=== PATIENT | female | born 1950 | race Caucasian/White ===

== ENCOUNTER → 2021-04-20 03:34 | Outpatient (CLI) | payer MEDICARE, SELFPAY ==
[2021-04-22 12:58] LABS: SARS-CoV-2 RNA PCR Negative
== END ==
PROVIDERS: PCP Physician Assistant; Visit Provider Internal Medicine Gastroenterology
DX: Z01.812 Encounter for preprocedural laboratory examination (principal); Z20.822 Contact with and (suspected) exposure to COVID-19
CPT/HCPCS: C9803; U0003; U0005

== ENCOUNTER 2021-04-23 00:40 | Day surgery (SDC) | payer MEDICARE, SELFPAY ==
[2021-04-14 13:24] VITALS: BMI 26.2
[2021-04-23 09:20] VITALS: BP 141/58; PULSE 56; RESP 20; TEMP 36.3; O2SAT 99
[2021-04-23] MEDS: LACTATED RINGERS 1,000 ML 150 ML IV CONT (09:31)
--- NOTE | 2021-04-23 10:07 | WPDANESEPPF ---
Anes - Initial Pre Proc Eval Procedure: Operation Date: 04/23/21 10:00 Proposed Procedures p Screening Colonoscopy - Herber Smith MD Date/Time: 04/23/21 10:07 Surgeon: Herber Smith MD Pre Op Diagnosis: hx of colon polyps Patient Data Age: 71 Gender: F Height: 5 ft 2 in Weight: 64.8 kg Last Vital Signs Temp 97.3 F L 04/23/21 09:20 Pulse 56 L 04/23/21 09:20 Resp 20 04/23/21 09:20 BP 141/58 H 04/23/21 09:20 Pulse Ox 99 04/23/21 09:20 Allergies Allergy/AdvReac Type Severity Reaction Status Date / Time ciprofloxacin [From Cipro] Allergy Nausea and Verified 04/23/21 09:18 Vomiting fluconazole [From Diflucan] Allergy Hives Verified 04/23/21 09:18 nitrofurantoin Allergy Hives Verified 04/23/21 09:18 [From Macrodantin] Sulfa (Sulfonamide Allergy Hives Verified 04/23/21 09:18 Antibiotics) Home Medications Medication Instructions Recorded Confirmed Type amlodipine 5 mg PO DAILY 12/11/19 04/14/21 History benazepril 20 mg PO DAILY 12/11/19 04/14/21 History calcium carbonate [Calcium 500] 500 mg PO DAILY 12/11/19 04/14/21 History cholecalciferol (vitamin D3) 25 mcg PO DAILY 12/11/19 04/14/21 History [Vitamin D3] famotidine [Pepcid] 20 mg PO BID 12/11/19 04/14/21 History fish,bora,flax oils-om3,6,9no1 800 cap PO DAILY 12/11/19 04/14/21 History [Nunda 3-6-9] magnesium 250 mg PO DAILY 12/11/19 04/14/21 History metoprolol succinate 50 mg PO DAILY 12/11/19 04/14/21 History metronidazole 1 applic TOPICAL DAILY 12/11/19 04/14/21 History multivitamin 1 tablet PO DAILY 12/11/19 04/14/21 History rosuvastatin [Crestor] 20 mg PO DAILY 12/11/19 04/14/21 History zinc 50 mg PO DAILY 12/11/19 04/14/21 History Patient hx anesthesia problems: none Family hx anesthesia problems: none [facility] Past Medical History Medical History (Updated 12/31/19 @ 11:59 by Jesus House MD) Arthritis Chronic diarrhea Elevated cholesterol GERD (gastroesophageal reflux disease) HTN (hypertension) 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 Family History Family History (Updated 12/11/19 @ 11:03 by Jesus House MD) Sibling FH: kidney cancer Social History Social History (Updated 12/11/19 @ 11:04 by Jesus House MD) Smoking packs per day: 1 Smoking cigarettes per day: 20.0 Years smoked: 20 Smoking pack-years: 20.00 Smoking status: Former smoker Tobacco type: cigarettes Alcohol intake: never Substance use: never Substance use type: does not use Living arrangements: with family Spiritual care concerns: No Anes - Eval Final PreProcedure Day of Procedure 04/23/21 10:07 Patient weight: overweight Heart: regular rate and rhythm Lungs: clear to auscultation Airway: Mallampati scale class II Neurological: alert and oriented Last oral intake: >/= 8 hours ASA classification: III Emergent: no Anesthetic plan: proceed Anesthesia type and monitoring: general GIVS and standard monitoring Informed Consent: The patient's anesthetic plan and its attendant risks and benefits were discussed with the patient/family/POA. Questions were solicited and answers provided to the satisfaction of the patient/family/POA.
--- NOTE | 2021-04-23 10:21 | PM.HPGS ---
History of Present Illness History of Present Illness Consent: Risks, benefits, and alternatives have been discussed and questions answered. Patient agrees to proceed with procedure. Chief complaint: hx of colon polyps Narrative: Eva Tomas is a 71 year old female referred for colon cancer screening. She had a polyp removed many years ago. 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 Family History Family History Sibling FH: kidney cancer Social History Social History Smoking packs per day: 1 Smoking cigarettes per day: 20.0 Years smoked: 20 Smoking pack-years: 20.00 Smoking status: Former smoker Tobacco type: cigarettes Alcohol intake: never Substance use: never Substance use type: does not use Living arrangements: with family Spiritual care concerns: No Meds Home Medications and Allergies Home Medications Medication Instructions Recorded Confirmed Type amlodipine 5 mg PO DAILY 12/11/19 04/14/21 History benazepril 20 mg PO DAILY 12/11/19 04/14/21 History calcium carbonate [Calcium 500] 500 mg PO DAILY 12/11/19 04/14/21 History cholecalciferol (vitamin D3) 25 mcg PO DAILY 12/11/19 04/14/21 History [Vitamin D3] famotidine [Pepcid] 20 mg PO BID 12/11/19 04/14/21 History fish,bora,flax oils-om3,6,9no1 800 cap PO DAILY 12/11/19 04/14/21 History [Matheson 3-6-9] magnesium 250 mg PO DAILY 12/11/19 04/14/21 History metoprolol succinate 50 mg PO DAILY 12/11/19 04/14/21 History metronidazole 1 applic TOPICAL DAILY 12/11/19 04/14/21 History multivitamin 1 tablet PO DAILY 12/11/19 04/14/21 History rosuvastatin [Crestor] 20 mg PO DAILY 12/11/19 04/14/21 History zinc 50 mg PO DAILY 12/11/19 04/14/21 History Allergies Allergy/AdvReac Type Severity Reaction Status Date / Time ciprofloxacin [From Cipro] Allergy Nausea and Verified 04/23/21 09:18 Vomiting fluconazole [From Diflucan] Allergy Hives Verified 04/23/21 09:18 nitrofurantoin Allergy Hives Verified 04/23/21 09:18 [From Macrodantin] Sulfa (Sulfonamide Allergy Hives Verified 04/23/21 09:18 Antibiotics) Vital Signs Vital Signs - 24 hr 04/23/21 09:20 Temperature 36.3 C L Pulse Rate 56 L Respiratory Rate 20 Blood Pressure 141/58 H Pulse Oximetry 99 Exam Const: General: alert Orientation/consciousness: patient oriented x3 Resp: Auscultation: clear to auscultation bilaterally Cardio: Rhythm: regular rhythm GI: GI Palp: Yes Soft to palpation and No Tenderness to palpation present (GI) Neuro: General: patient oriented x3 Assessment and Plan Assessment and plan (1) Colon cancer screening: Code(s): Z12.11 - Encounter for screening for malignant neoplasm of colon Status: Acute Assessment and Plan: Colonoscopy with possible biopsy or polypectomy or cautery or injection of substances.
[2021-04-23 10:45] VITALS: BP 97/49; PULSE 59; RESP 21; O2SAT 97
[2021-04-23 10:55] VITALS: BP 96/47; PULSE 60; RESP 21; O2SAT 99
[2021-04-23 11:05] VITALS: BP 119/59; PULSE 50; RESP 24; O2SAT 100
== END 2021-04-23 11:17 | disposition home or self-care (01) ==
PROVIDERS: PCP Physician Assistant; Visit Provider Internal Medicine Gastroenterology
PROC: 0DJD8ZZ Inspection of Lower Intestinal Tract, Via Natural or Artificial Opening Endoscopic (ICD-10-PCS; CPT 45378; principal; 2021-04-23 10:00)
DX: Z12.11 Encounter for screening for malignant neoplasm of colon (principal); D12.4 Benign neoplasm of descending colon; K52.9 Noninfective gastroenteritis and colitis, unspecified; K64.8 Other hemorrhoids; K21.9 Gastro-esophageal reflux disease without esophagitis; I10 Essential (primary) hypertension; E78.00 Pure hypercholesterolemia, unspecified; Z87.891 Personal history of nicotine dependence; Z86.010 Personal history of colon polyps
CPT/HCPCS: 45380; 88305; J2704; J7120

== ENCOUNTER 2021-11-25 08:00 | Outpatient (RCR) | payer MEDICARE, SELFPAY ==
--- NOTE | 2021-10-14 09:07 | PTOPEVAL ---
PHYSICAL THERAPY EVALUATION AND PLAN OF CARE 10-14-21 Thank you for referring Eva Tomas to [facility], for the diagnosis of lymphedema R breast. Mrs. Tomas is scheduled to be seen for therapy? 2 x/week for 6 weeks. She will be out of town for 2 weeks of this time frame. Please review, sign, date and return this plan of care TIFFANY. I agree with and certify that the following plan of care is medically necessary. Referring Physician Date Attending Provider: Annika Cazares MD *PT Outpatient Evaluation Document 10/14/21 08:05 JOANNA (Rec: 10/14/21 09:07 JOANNA [id number]) Outpatient Past Medical History Past Medical History Source of Past Medical History Recalled from Previous Visit, Confirmed with Patient/Family Neurological History Hx Seizures Yes: 2015, ONE TIME SEIZURE AFTER SURGERY Cardiovascular History Hx Hypercholesterolemia Yes: meds Hx Hypertension Yes: meds Respiratory History Hx Respiratory Disorders No Significant History Gastrointestinal History Hx Bowel Surgery Yes: 2015 PARTIAL COLECTOMY due to diverticulosis Hx Diverticulosis Yes Hx Gastroesophageal Reflux Disease Yes Hx Polyps Yes Genitourinary History Hx Genitourinary Disorders No Significant History Musculoskeletal History Hx Arthritis Yes: everywhere- neck, back, arms; chronic neck pain Hematological History Hx Blood Transfusions Yes Endocrine History Hx Other Endocrine Disorders Yes: LIVER DISEASE--fatty liver HEENT History Hx HEENT Disorders No Significant History Integumentary History Hx Other Skin Disorders Yes: SKIN CANCER REMOVED 2019 Psychosocial History Hx Psychiatric Disorders No Significant History Anesthesia History Hx Anesthesia Reactions No Significant History Other History Hx Cancer Yes: 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
--- NOTE | 2021-11-25 08:53 | PTOPEVAL ---
PHYSICAL THERAPY DISCHARGE 11-25-21 Refer to the clinical summary below, for her status today, compared to the initial evaluation. The goals were partially achieved. Discharge PT services. Thank you for referring Eva Tomas to [facility] Please review, sign, date and return this discharge summary TIFFANY. I agree with and certify that the following plan of care is medically necessary. Referring Physician Date Attending Provider: Annika Cazares MD Document 11/25/21 08:00 JOANNA (Rec: 11/25/21 08:53 JOANNA [id number]) Assessment Status Discharge Subjective Information Holcomb reports: do not see a Query Text:As Reported By Patient/ lot difference about my body, Family but I have learned what to do and what to watch for; doing my self massage every morning and exercises; kinesiotape helps and did not bother her skin unless she pulls it off, then red; Pain Assessment Timing of Pain Assessment Timing of Pain Assessment Assessment Pain Scale Pain Scale Used Numeric (1 - 10) Self Report Pain Assessment Right Breast(s) Reported Pain Level 0 Pain Description Aching Pain Frequency Intermittent Lowest Pain Intensity 0 Greatest Pain Intensity 5 Other Pain Aggravating Factors shoulder R abduction/ flexion and extension positions Pain Score Pain Score 0: Self Report Additional Pain Score Comments can lie on her R side without any problems; Interventions Used Interventions Used By Clinicians Education,Exercise Lymphedema Evaluation Skin Inspection Tissue Texture Firm Lymphedema Stage II Skin Inspection Comment standing: - pt wearing compression vel with good compression over lateral trunk- higher sides and over abdomen; - visual inspection from posterior: minimal edema over R lateral upper trunk/lateral scapula - circumferential measurements : at umbilicus 91 cm superior to umbilicus-- mid way up abdominal vertical scar 91 cm - in supine: with palpation - visible edema over R axilla
== END 2021-11-25 16:09 | disposition home or self-care (01) ==
LOC: ANHPT 08:00
PROVIDERS: PCP Physician Assistant
DX: I89.0 Lymphedema, not elsewhere classified (principal); D05.11 Intraductal carcinoma in situ of right breast
CPT/HCPCS: 97110; 97140; 97161

== ENCOUNTER 2022-04-22 10:42 | Outpatient (CLI) | payer MEDICARE, SELFPAY ==
--- NOTE | ~2022-04-22 | US_ITS ---
US soft tissue UE LT 04/22/2022 11:42 Indication: Localized swelling of the left wrist Procedure: High-resolution Limited soft tissue ultrasound of the left breast in the area of palpable concern Comparison: No prior studies for comparison. Findings: Normal heterogeneous soft tissue without focal solid or cystic mass. No abnormal vascularit y is identified. Impression: 1: Normal limited soft tissue ultrasound of the left wrist in the area of palpable concern. No discre te mass. Reviewed, dictated and finalized at location A. Impression: 1: Normal limited soft tissue ultrasound of the left wrist in the area of palpa ble concern. No discrete mass.
== END 2022-04-22 10:43 | disposition home or self-care (01) ==
PROVIDERS: PCP Physician Assistant; Visit Provider Physician Assistant
DX: R22.32 Localized swelling, mass and lump, left upper limb (principal)
CPT/HCPCS: 76882

== ENCOUNTER 2022-11-01 09:39 | Outpatient (CLI) | payer MEDICARE, SELFPAY ==
[2022-11-01 10:59] LABS: Alanine Aminotransferase 31 U/L (6-35); Albumin Level 4.4 g/dL (3.5-5.1); Alkaline Phosphatase 103 U/L (38-126); Anion Gap 9 mmol/L (8-16); Aspartate Amino Transferase 54 U/L (14-36); Bilirubin,Total 0.7 mg/dL (0.2-1.3); Blood Urea Nitrogen 15 mg/dL (7-17); Calcium 9.2 mg/dL (8.4-10.2); Carbon Dioxide 27 mmol/L (22-30); Chloride 107 mmol/L (98-107); Cholesterol 173 mg/dL (0-200); Estimated Glomerular Filt Rate > 60; Glucose 105 mg/dL (65-110); HDL Direct 39 mg/dL; Potassium 4.1 mmol/L (3.4-5.0); Sodium 143 mmol/L (137-145); Triglycerides 129 mg/dL (<150)
[2022-11-01 11:10] LABS: LDL Cholesterol Direct 93 mg/dL
[2022-11-01 11:12] LABS: Hemoglobin A1C 6.2 % (<5.7)
== END 2022-11-01 09:40 | disposition home or self-care (01) ==
LOC: ANHLAB 09:44
PROVIDERS: PCP Physician Assistant; Visit Provider Physician Assistant
DX: E78.5 Hyperlipidemia, unspecified (principal); R73.01 Impaired fasting glucose; Z79.899 Other long term (current) drug therapy
CPT/HCPCS: 36415; 80048; 80061; 80076; 83036

== ENCOUNTER 2025-03-04 12:43 | Outpatient (CLI) | payer MEDICARE, SELFPAY ==
--- NOTE | ~2025-03-04 | DEXA_ITS ---
Bone Density Report Name: CHENTE HODGES Age: 75 Sex: Female Ethnicity: White Date of : 1950 Indication: postmenopausal; screening for osteoporosis; height loss; cancer; hysterectomy; Referring Provider: ESHA CONNOR Study: Bone densitometry was performed. Exam Date: March 04, 2025 Accession number: [id number] Bone Density: Region BMD T-score Z-score Classification AP Spine(L1-L4) 0.896 -1.4 1.1 Osteopenia Femoral Neck (Left) 0.601 -2.2 -0.1 Osteopenia Total Hip (Left) 0.871 -0.6 1.3 Normal Femoral Neck (Right) 0.637 -1.9 0.3 Osteopenia Total Hip (Right) 0.793 -1.2 0.7 Osteopenia Total Hip Mean 0.832 -0.9 1.0 Normal World Health Organization criteria for BMD impression classify patients as: Normal (T-score at or above -1.0), Osteopenia (T-score between -1.0 and -2.5), or Osteoporosis (T-score at or below -2.5). 10-year Fracture Risk(1): Major Osteoporotic Fracture 15% Hip Fracture 4.2% Reported Risk Factors: [place] (), Neck BMD=0.601, BMI=27.8 (1) FRAX(R) Version 3.08. Fracture probability calculated for an untreated patient. Fracture probability may be lower if the patient has received treatment. Clinical Information Provided by Patient: Has used the following medications: Vitamin D Has the following medical conditions: Cancer, Hysterectomy, breast / skin CA Patient maximum height was 62.0 Menopause Age: 48 Drinks caffeinated beverages Onset of menses at age 12 Number of children 0 Impression: The patient has low bone mass, based on the Left Femoral Neck T-score. The patient has an estimated ten-year risk of hip fracture of 4.2% and an estimated ten-year risk of major fracture of 15%, based on the WHO FRAX algorithm. Discussion: BONE DENSITY IS LOW AT ONE OR MORE SKELETAL SITES. THE PATIENT'S BMD AND CLINICAL RISK FACTORS CONTRIBUTE TO THIS PATIENT'S INCREASED RISK OF FRACTURE. This patient's lowest T-score is low at one or more skeletal sites. It meets the World Health Organization's (WHO) criteria for ?low bone mass? (T-score between -1.0 and -2.5). The patient's 10-year risk of hip fracture as calculated by FRAX exceeds the threshold where pharmacological therapy is recommended by the National Osteoporosis Foundation (NOF). However, all treatment decisions require clinical judgment and consideration of individual patient factors, including patient preferences, comorbidities, previous drug use, risk factors not captured in the FRAX model (e.g., frailty, falls, vitamin D deficiency, increased bone turnover, interval significant decline in bone density) and possible under or overestimation of fracture risk by FRAX. The patient should follow a healthful lifestyle (good nutrition with adequate calcium and vitamin D, and appropriate weight-bearing exercise). Follow-Up: Consider a repeat BMD and Vertebral Fracture Assessment (VFA) exam in 2 years or sooner if medically necessary, to reassess this patient's status. Reported by: CARROLL on 03/04/2025 1:21:00 PM. Reviewed, dictated and finalized at location [facility]
--- OUTSIDE RECORDS SUMMARY | 2025-03-04 14:22 | XMS_ITS | Clinical Summary ---
Author Organization [facility] Address [address] [place] [address] Phone Care Team Providers Care Concert Pianist Name Role Phone Loren Clements Primary Care Provider [phone] Allergies Active Allergy Reactions Criticality Noted Date Comments Ciprofloxacin Abdominal Pain Medium 11/16/2019 heartburn Fluconazole Unknown 05/04/2016 Nitrofurantoin Macrocrystalline Unknown 05/2016 Sulfa (Sulfonamide Antibiotics) Unknown 05/2016 Medications amLODIPine (NORVASC) 5 mg tablet Take 5 mg by mouth daily. Active benazepril (LOTENSIN) 20 mg tablet Take 20 mg by mouth daily. Active metoprolol tartrate (LOPRESSOR) 50 mg tablet Take 50 mg by mouth daily. Active multivitamin (DAILY-YOCASTA) tablet Take 1 Tablet by mouth daily. Active rosuvastatin (CRESTOR) 20 mg tablet rosuvastatin 20 mg tablet Active famotidine (PEPCID) 20 mg tablet Take 20 mg by mouth 2 times daily. Active om 3/E/linol/ala/o leic/gla/lip (OMEGA 3-6-9 ORAL) Take by mouth. Activ e cholecalciferol , Vitamin D3, (VITAMIN D3) 1,000 unit Capsule Take by mouth daily. Active metroNIDAZOLE (METROCREAM) 0.75 % Cream Apply to affected area 2 times daily. Active metoprolol succinate (TOPROL XL) 50 mg Extended Release 24 hour tablet 9 Active Active Problems Patient Care Coordination No te Formatting of this note migh t be different from the original. Primary Care: Loren Clements PA Referring Provider: No referring provider defined for this encounter. 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 Dense breast tissue on mammogram 10/18/2019 Seizure 12/03/2016 Seizure 05/04/2016 Resolved Problems Problem Noted Date Diagnosed Date Resolved Date Abnormality of right breast on screening mammogram 10/18/2019 09/18/2020 Encounters Date Type Department Care Team Description 01/16/2025 External Device Data [facility] ABSTRACTION Provider, Abstract 01/01/2025 External Device Data [facility]STRACTION Provider, Abstract 01/01/2025 External Device Data [facility] Provider, Abstract 01/01/2025 External Device Data [facility] Provider, Abstract 12/25/2024 1:30 PM DRILL SETUP OPERATOR Office Visit [facility] Breast Surgery [address] [place] [id number] Annika Cazares MD History of right breast cancer (Primary Dx); S/P partial mastectomy, right; Heterogeneously dense tissue of both breasts on mammography 12/25/2024 10:54 AM DRILL SETUP OPERATOR - 12/25/2024 11:59 PM DRILL SETUP OPERATOR Hospital Encounter [facility] [address] [place] [address] Annika Cazares MD Discharge Disposition: Home or Self Care 12/20/2024 External Device Data [facility] ABSTRACTION Provider, Abstract from Last 3 Months Immunizations Immunization Administration Dates Next Due Influenza Seasonal Unspecified Formulation IM Social History Tobacco Use Types Packs/Day Years Used Date Smoking Tobacco: Former Cigarettes 1 20 1 970 - 1989 Smokeless Tobacco: Never Alcohol Use Standard Drinks/Week Comments Yes 0 (1 standard drink = 0.6 oz pur e alcohol) RARELY Feeling Safe Answer Date Recorded Do you worry about feeling s afe and happy with the people in your life? No 12/25/2024 Comments No Sex and Gender Information Value Date Recorded Sex Assigned at Not on file Legal Sex Female 8:49 AM CDT Gender Identity Not on file Sexual Orientation Not on file Last Filed Vital Signs Vital Sign Reading Time Taken Comments Blood Pressure 116/78 12/25/2024 1:19 PM DRILL SETUP OPERATOR Pulse 55 12/25/2024 1:19 PM DRILL SETUP OPERATOR Temperature 36.9 C (98.4 F) 12/19/2019 8:24 AM DRILL SETUP OPERATOR Respiratory Rate 16 11/19/2019 12:32 PM DRILL SETUP OPERATOR Oxygen Saturation 94% 12/25/2024 1:19 PM DRILL SETUP OPERATOR Inhaled Oxygen Concentration - - Weight 66.7 kg (147 lb) 12/25/2024 1:19 PM DRILL SETUP OPERATOR Height 157.5 cm (5' 2 ) 12/25/2024 1:19 PM DRILL SETUP OPERATOR Body Mass Index 26.89 12/25/2024 1:19 PM DRILL SETUP OPERATOR Plan of Treatment Health Maintenance Due Date Last Done Comments DTAP/TDAP/TD VACCINES (1 - Tdap) 1967 OSTEOPOROSIS SCREENING 2013 ZOSTER VACCINE (2 of 3) 09/13/2016 07/19/2016 RSV VACCINE (60+ or ) (1 - 1-dose 75+ series) 2023 Traditional Medicare (ACO) A nnual Wellness Visit 06/11/2024 06/10/2023 INFLUENZA VACCINE (#1) 2024 09/12/2019, 2017 PNEUMOCOCCAL VACCINE 50+ YEARS Completed 12/27/2015 , 01/30/2014 COLORECTAL SCREENING Discontinued 04/28/2021 Colorectal Cancer Screening Discontinued FIT-DNA Q 3 years Discontinued FIT/FOBT Q 1 year Discontinued Flex Sig/CT Colonography Q 5 years Discontinued Medical Devices Implanted Type Area Thread Spooler Device Identifier Shelf Expiration Date Model / Serial / Lot Hemostatic Surgicel 2x14in 1952 - [id number] Implanted:Qty : 1 on 11/19/2019 by Annika Cazares MD at [facility] Hemostatic Right: Breast [employer] [id number] 03/27/20241950 / / [id number] Procedures Procedure Name Priority Date/Time Associated Diagnosis Comments MAMMO 3D BHAVIK DIAGNOSTIC BILAT W OR WO CAD Routine 12/25/2024 12:05 PM DRILL SETUP OPERATOR History of right breast cancer from Last 3 Months Results * MAMMO DIAG BILAT 3D BHAVIK W OR WO CAD (12/25/2024 12:05 PM DRILL SETUP OPERATOR) Anatomical Region Laterality Modality Breast Bilateral Mammography 12/25/2024 12:0 5 PM DRILL SETUP OPERATOR Impressions 12/25/2024 12:13 PM DRILL SETUP OPERATOR IMPRESSION: No mammographic evidence of malignancy in the bilateral breasts. Routine mammography is recommended in 1 year. OVERALL FINAL ASSESSMENT: BI-RADS CATEGORY 2 - Benign findings DICTATION LOCATION: [facility] 12/25/2024 12:13 PM DRILL SETUP OPERATOR EXAMINATION: BILATERAL DIAGNOSTIC DIGITAL MAMMOGRAPHY WITH TOMOSYNTHESIS AND CAD DATE: 12/25/2024 12:05 PM HISTORY: 74-year-old female with a personal history of right breast cancer treated with a right breast conservation therapy in 2019 presents for annual bilateral diagnostic mammography. No current symptoms. COMPARISON: Mammography with dates ranging from 10/18/2023 through 09/18/2015. TECHNIQUE: A bilateral diagnostic mammogram was performed. Low-dose full-field digital breast tomosynthesis examination was performed with 2D and 3D acquisitions. Examination is read in conjunction with computer aided detection. BREAST COMPOSITION: The breasts are heterogeneously dense, which may obscure small masses. FINDINGS: There are stable mammographic findings consistent with prior right breast conservation therapy. There are no suspicious masses, suspicious calcifications, or other suspicious findings in either breast. There has been no suspicious interval change. Computer aided detection was used in the interpretation of this examination. us Annika Cazares MD MAMMO ORDERABLES Final R esult from Last 3 Months Insurance MEDICARE PART A AND B [facility] [id number] Care Teams Concert Pianist Relationship Specialty Start Date End Date Loren Clements PA PCP - General Physician [facility] 10/18/19
--- OUTSIDE RECORDS SUMMARY | 2025-03-04 14:22 | XMS_ITS | Clinical Summary ---
Author Organization [facility] Address [address] [address] Care Team Providers Care Asphalt Layer Name Role Phone Unavailable Primary Care Provider Unavailabl e Source Comments [facility],non-owned Affiliates and Associated Physician Practices is amultiple site organization consisting of ambulatory clinics and hospital sitesin [place], [place], [place] and [place]. This disclosure is being madepursuant to the Care Everywhere program and may not contain all information available regarding this patient. Last updated 18.[facility] Allergies Active Allergy Reactions Criticality Noted Date Comments Ciprofloxacin Medium 07/19/2016 Abd. pain Diflucan Unknown 03/20/2013 Nitrofurantoin Unknown 03/20/2013 Sulfa Drugs Unknown 03/20/2013 Medications * Be aware that medications may not be up to date on this document. Alwaysverify current medications with the patient. Medication Sig Dispensed Refills Start Date End Date Status aspirin 81 MG tablet Take 81 mg by mouth once daily Reported on 12/28/2016 Active Multiple Vitamin (MULTIVITAMINS PO) Take by mouth once daily. Active fish oil/omega-3 fatty acids (OMEGA 3) 1000 MG capsule Take 1,000 mg by mouth once daily. Active omeprazole (PRILOSEC) 20 MG capsule Take 1 Cap by mouth 2 times daily,before breakfast and supper 60 Cap 3 04/02/2016 Active Additional Information Patient taking differently:20 mg OralDAILY, Reported on 04/16/2016 Probiotic Product (PROBIOTIC & ACIDOPHILUS EX ST) CAPS Take 1 Tab by mouth 2 times daily Active amLODIPine (NORVASC) 5 MG tablet Take 1 Tab by mouth once daily 90 Tab 3 03/29/2017 Active benazepril (LOTENSIN) 20 MG tablet Take 1 Tab by mouth once daily 90 Tab 3 03/29/2017 Active metoprolol succinate XL 24hr (TOPROL XL) 50 MG tablet Take 1 Tab by mouth once daily 90 Tab 3 03/29/2017 Active Cholecalciferol (VITAMIN D3) 1000 UNITS Take 1,000 Units by mouth once daily Active Cholestyramine Use once daily 1/2 scoop per day Active metroNIDAZOLE (METROGEL) 0.75 % gel Apply to affected area once daily 3 Tube 3 08/19/2017 Active Active Problems Problem Noted Date Diagnosed Date Electrolyte abnormality 05/10/2016 Personal history of surgery to heart and great vessels, presenting hazards to health 05/10/2016 Abnormal EEG 04/18/2016 Hypomagnesemia 04/18/2016 Hypokalemia 04/18/2016 Hypocalcemia 04/18/2016 Syncope 04/16/2016 Diastolic dysfunction 01/21/2016 Nonspecific abnormal electrocardiogram (ECG) (EK G) 01/05/2016 Hypercalcemia 08/07/2014 Esophageal reflux 06/07/2013 Essential hypertension, benign 06/07/2013 Hyperlipidemia 06/07/2013 Immunizations Name Administration Dates Next Due INFLUENZA VACCINE 09/06/2016,09/01/2015 PNEUMOCOCCAL PPSV23 01/30/2014 Pneumococcal Pcv13 Conj 12/27/2015 ZOSTER VACCINE, LIVE 07/19/2016 Family History Medical History Relation Name Comments Diabetes Brother 1 Gary Heart Disease Brother 1 Agry CHF Diabetes Brother 2 Zachary Heart Disease Brother 2 Zachary CA and stent Diabetes Father Heart Disease Father Hypertension Father Stroke Maternal Grandmother Hypertension Mother Kidney Disease Mother kidney failur e Relation Name Status Comments Brother 1 Gary Alive Brother 2 Zachary Alive Brother 3 Perry Alive Father Maternal Grandfather Maternal Grandmother Mother Paternal Grandfather Paternal Grandmother Social History Tobacco Use Types Packs/Day Years Used Date Smoking Tobacco: Former Cigarettes 1.5 20 0 08/01/1970 - 08/01/1990 Smokeless Tobacco: Never Alcohol Use Standard Drinks/Week Comments Yes 0 (1 standard drink = 0.6 oz pur e alcohol) occasional Sex and Gender Information Value Date Recorded Sex Assigned at Not on file Gender Identity Not on file Sexual Orientation Not on file Last Filed Vital Signs Vital Sign Reading Time Taken Comments Blood Pressure 119/76 08/19/2017 2:11 PM CDT Pulse 77 08/19/2017 2:11 PM CDT Temperature 37.2 C (99 F) 08/19/2017 2:11 PM CDT Respiratory Rate 16 08/19/2017 2:11 PM CDT Oxygen Saturation 97% 08/19/2017 2:11 PM CDT Inhaled Oxygen Concentration - - Weight 64 kg (141 lb) 08/19/2017 2:11 PM CDT Height 157.5 cm (5' 2 ) 08/19/2017 2:11 PM CDT Body Mass Index 25.79 08/19/2017 2:11 PM CDT Plan of Treatment Health Maintenance Due Date Last Done Comments BONE DENSITY TESTING 1950 MEDICARE AWV 12 MONTHS 1950 HEPATITIS C SCREENING 01/10/1966 DTAP/TDAP/TD VACCINES (1 - Tdap) 1967 ZOSTER VACCINE (2 of 3) 09/13/2016 07/19/2016 Respiratory Syncytial Virus (RSV) Vaccine Pt: or over 60 yrs (1 - 1-dose 75+ series) 2023 COVID-19 VACCINE ( - 2023-2 5 season) 2024 DEPRESSION SCREENING 11/28/2024 INFLUENZA VACCINE (Season Ended) 2025 09/06/2016, 09/01/2015 PNEUMOCOCCAL VACCINE 50+ Completed 016, 01/30/2014 HEPATITIS B VACCINE Aged Out No longe r eligible based on patient's age to complete this topic HIB VACCINE Aged Out No longer eligi ble based on patient's age to complete this topic HPV VACCINE Aged Out No longer eligi ble based on patient's age to complete this topic MENINGOCOCCAL (Group B) VACCINE SHARED DECISION-MAKING Aged Out No longer eligible based on patient's age to complete this topic MENINGOCOCCAL GROUPS A/C/Y/W VACCINE Aged Out No longer eligible b ased on patient's age to complete this topic Advance Directives * Full Code (Latest Code Status on File) Date Activated Date Inactivated Comments 04/16/2016 7:50 AM 04/18/2016 1:01 PM * Full Code Date Activated Date Inactivated Comments 03/23/2016 6:33 PM 04/02/2016 12:28 PM
--- OUTSIDE RECORDS SUMMARY | 2025-03-04 14:22 | XMS_ITS | Encounter Summary ---
Author Organization [facility] Address [address] [place] [address] Care Team Providers Care Pyrotechnic Assembler Name Role Phone Loren Clements Primary Care Provider [phone] Encounter Details Date Type Department Care Team (Late st Contact Info) Description 12/11/2019 Chart Note [facility] Rad[facility] Therapy [address] [place] [address] [place] [address] [place] [address] Social History Tobacco Use Types Packs/Day Years Used Date Smoking Tobacco: Former Cigarettes 1 20 1 0 - 1989 Smokeless Tobacco: Never Alcohol Use Standard Drinks/Week Comments Yes 0 (1 standard drink = 0.6 oz pur e alcohol) RARELY Comments No Sex and Gender Information Value Date Recorded Sex Assigned at Not on file Legal Sex Female 8:49 AM CDT Gender Identity Not on file Sexual Orientation Not on file documented as of this encounter Plan of Treatment Not on file documented as of this encounter Visit Diagnoses Not on filedocumented in this encounter Care Teams Pyrotechnic Assembler Relationship Specialty Start Date End Date Loren Clements PA PCP - General Physician Museum Archivist 10/18/19 documented as of this encounter
--- OUTSIDE RECORDS SUMMARY | 2025-03-04 14:22 | XMS_ITS | Data Portability ---
Author Organization [facility], Main Office Address [address] [place] [address] Assessment Encounter Date Assessment Date Assessment LastModified by Organization Details LastModified Time 06/10/2023 06/10/2023 colonoscopy UTD mammogram UTD with gyne eye and dental UTD Not available 06/10/2023 10:50:50 12/08/2023 12/08/2023 colonoscopy UTD mammogram UTD with gyne eye and dental UTD Not available 12/08/2023 14:02:23 Plan of Treatment Reminders Order Date Submit Date Provider Last Modified By Organization Details Last Modified Time Details Appointments None recorded. Lab HbA1c (hemoglobi n A1c), blood 2023 024 [facility], [address], [address], 4 03:21:04 BMP, serum or plasma 2023 024 [facility], [address], [address], 4 03:21:03 CBC w/ auto diff 2023 024 [facility], [address], [address], 4 03:21:06 hepatic function panel, serum 2023 024 [facility], [address], [address], 4 03:21:05 TSH + free T4, serum 2023 024 [email or web address], [address], [address], [place], [address], 4 03:21:01 lipid panel, serum 2023 024 [facility], [address], [address], 4 03:21:02 HbA1c (hemoglobi n A1c), blood 2022 024 [email or web address] [facility], [address], [address], [place], [address], 4 15:05:43 BMP, serum or plasma 2022 024 [email or web address] [facility], [address], [place], [address], 4 15:06:12 CBC w/ auto diff 2022 024 [email or web address] [facility], [address], [place], [address], 4 15:06:04 hepatic function panel, serum 2022 024 [email or web address] [facility], [address], [place], [address], 4 15:05:57 lipid panel, serum 2022 024 [email or web address] [facility], [address], [place], [address], 4 15:05:49 Referral None recorded. Procedures None recorded. Surgeries None recorded. Imaging None recorded. Medication Orders None recorded. Patient TargetsNo targets recorded. Patient Instructions Encounter Date Encounter Id Patient Instructions Last Modified By Organization Details Last Modified Time 06/10/2023 [id number] dementia rating scale-2* [email or web address] Not available 06/10/2023 11:17:12 multi-dimensiona l health assessment questionnaire* [email or web address] Not available 06/10/2023 11:17:20 care plan* [email or web address] Not available 05/28 11:17:23 advance directiv es: care instructions Not available 06/10/2023 10:50:59 advance care planning: care instructions Not available 06/10/2023 10:50:59 [place] Advance Directives Not available 06/10/2023 10:50:59 Personalized Hea lth Plan and Screening Recommendations Advance Directives - Do you have one? Yes Advance Directives - Do we have your advance directive on file in your health record? No, please bring in a copy at your earliest convenience Primary Prevention/Interven tion (prevents or decreases the chance of common diseases from occurring) Smoking Risk: Non Smoker Alcohol Misuse Screening: Negative Weight: Appropriate Overwei ght continue your current weight loss efforts Physical activity: Need more exercise/physical activity minimum of 10-20 minutes of activity that causes mild breathlessness/day Nutrition: Good Average Fall Risk (screened today): Low Vaccines Pneumococcal: Ordered Recommended today Influenza: Your next one in the fall of this year Chronic Disease Risks Stroke: Low Risk Intermediate Risk I have no recommendations Act prabhjot diagnosis, Continue current treatment plan Heart Attack: Low risk Intermediate Risk I have no recommendations Act prabhjot diagnosis, Continue current treatment plan Clogging of the Arteries: Low risk Intermediate Risk I have no recommendations Act prabhjot diagnosis, Continue current treatment plan Diabetes: High Risk Active diagnosis, Continue current treatment plan Secondary Prevention/Interven tion (detects treatable diseases before they may cause symptoms, disability, or ) Breast Cancer Screening with mammogram: Your next mammogram: Ordered Recommended today Recommended today, but you have declined Cervical/Uterine/Ov ross Cancer Screening: No screening necessary Osteoporosis Screening: Your next DEXA in: Ordered Recomme nded today Date Screening Last Performed: Colon Cancer Screening: Colonoscopy Date Screening Last Performed: Eye Disease Screening: Ordered Dementia Risk: Low Depression Screening: Negative Active diagnosis, Continue current treatment plan Not available 06/27/2023 13:46:00 Reason for Referral None Reported. Results Created Date Observation Date Name Description Value Unit Range Abnormal Flag Note LastModifiedBy Organization Detail LastModifiedTime 10/05/20 21 10/06/2021 URINA LYSIS , COMPL ETE color yellow yellow normal Not Available [address], [address], 10/06/2021 05:10:59 10/05/2010/06/2021 URINA LYSIS , COMPL ETE appearance clear clear normal Not Available [address], [address], 10/06/2021 05:10:59 10/05/2010/06/2021 URINA LYSIS , COMPL ETE specific gravity 1.005 1.001- 1.035 normal Not Available [address], [address], 10/06/2021 05:10:59 10/05/2010/06/2021 URINA LYSIS , COMPL ETE pH 6.5 5.0-8. 0 normal Not Available [address], [address], 10/06/2021 05:10:59 10/05/2010/06/2021 URINA LYSIS , COMPL ETE glucose negati ve negati ve normal Not Available [address], [address], 10/06/2021 05:10:59 10/05/2010/06/2021 URINA LYSIS , COMPL ETE bilirubin negati ve negati ve normal Not Available [address], [address], 10/06/2021 05:10:59 10/05/2010/06/2021 URINA LYSIS , COMPL ETE ketones negati ve negati ve normal Not Available [address], [address], 10/06/2021 05:10:59 10/05/2010/06/2021 URINA LYSIS , COMPL ETE occult blood negati ve negati ve normal Not Available [address], [address], 10/06/2021 05:10:59 10/05/20 21 10/06/2021 URINA LYSIS , COMPL ETE protein negati ve negati ve normal Not Available [address], [address], 10/06/2021 05:10:59 10/05/2010/06/2021 URINA LYSIS , COMPL ETE nitrite negati ve negati ve normal Not Available [address], [address], 10/06/2021 05:10:59 10/05/20 21 10/06/2021 URINA LYSIS , COMPL ETE leukocyte esterase negati ve negati ve normal Not Available [address], [address], 10/06/2021 05:10:59 10/05/20 21 10/06/2021 URINA LYSIS , COMPL ETE WBC none seen /hpf < or = 5 normal Not Available [address], [address], 10/06/2021 05:10:59 10/05/20 21 10/06/2021 URINA LYSIS , COMPL ETE RBC none seen /hpf < or = 2 normal Not Available [address], [address], 10/06/2021 05:10:59 10/05/20 21 10/06/2021 URINA LYSIS , COMPL ETE squamous epithelial cells none seen /hpf < or = 5 normal Not Available [address], [address], 10/06/2021 05:10:59 10/05/20 21 10/06/2021 URINA LYSIS , COMPL ETE bacteria none seen /hpf none seen normal Not Available [address], [address], 10/06/2021 05:10:59 10/05/20 21 10/06/2021 URINA LYSIS , COMPL ETE hyaline cast none seen /lpf none seen normal Not Available [facility] [address], [address], 10/06/2021 05:10:59 10/05/20 21 10/06/2021 CBC (INCL UDES DIFF/ PLT) white blood cell count 5.8 thous and/u L 3.8-10 .8 normal Not Available [address], [address], 10/06/2021 05:10:58 10/05/20 21 10/06/2021 CBC (INCL UDES DIFF/ PLT) red blood cell count 4.60 nas on/uL 3.80-5 .10 normal Not Available [address], [address], 10/06/2021 05:10:58 10/05/20 21 10/06/2021 CBC (INCL UDES DIFF/ PLT) hemoglobin 13.4 g/dL 11.7-1 5.5 normal Not Available [address], [address], 10/06/2021 05:10:58 10/05/20 21 10/06/2021 CBC (INCL UDES DIFF/ PLT) hematocrit 41.8 % 35.0-4 5.0 normal Not Available [address], [address], 10/06/2021 05:10:58 10/05/20 21 10/06/2021 CBC (INCL UDES DIFF/ PLT) MCV 90.9 fL 80.0-1 00.0 normal Not Available [address], [address], 10/06/2021 05:10:58 10/05/20 21 10/06/2021 CBC (INCL UDES DIFF/ PLT) MCH 29.1 pg 27.0-3 3.0 normal Not Available [address], [address], 10/06/2021 05:10:58 10/05/2010/06/2021 CBC (INCL UDES DIFF/ PLT) MCHC 32.1 g/dL 32.0-3 6.0 normal Not Available [address], [address], 10/06/2021 05:10:58 10/05/20 21 10/06/2021 CBC (INCL UDES DIFF/ PLT) RDW 11.7 % 11.0-1 5.0 normal Not Available [address], [address], 10/06/2021 05:10:58 10/05/20 21 10/06/2021 CBC (INCL UDES DIFF/ PLT) platelet count 280 thous and/u L 140-40 0 normal Not Available [address], [address], 10/06/2021 05:10:58 10/05/20 21 10/06/2021 CBC (INCL UDES DIFF/ PLT) MPV 11.3 fL 7.5-12 .5 normal Not Available [address], [address], 10/06/2021 05:10:58 10/05/20 21 10/06/2021 CBC (INCL UDES DIFF/ PLT) absolute neutrophils 3793 cells /uL 1500-7 800 normal Not Available [address], [address], 10/06/2021 05:10:58 10/05/20 21 10/06/2021 CBC (INCL UDES DIFF/ PLT) absolute lymphocytes 1415 cells /uL 850-39 00 normal Not Available [address], [address], 10/06/2021 05:10:58 10/05/20 21 10/06/2021 CBC (INCL UDES DIFF/ PLT) absolute monocytes 516 cells /uL 200-95 0 normal Not Available [address], [address], 10/06/2021 05:10:58 10/05/20 21 10/06/2021 CBC (INCL UDES DIFF/ PLT) absolute eosinophils 58 cells /uL 15-500 normal Not Available [address], [address], 10/06/2021 05:10:58 10/05/20 21 10/06/2021 CBC (INCL UDES DIFF/ PLT) absolute basophils 17 cells /uL 0-200 normal Not Available [address], [address], 10/06/2021 05:10:58 10/05/20 21 10/06/2021 CBC (INCL UDES DIFF/ PLT) neutrophils 65.4 % normal Not Available [address], [address], 10/06/2021 05:10:58 10/05/20 21 10/06/2021 CBC (INCL UDES DIFF/ PLT) lymphocytes 24.4 % normal Not Available [address], [address], 10/06/2021 05:10:58 10/05/20 21 10/06/2021 CBC (INCL UDES DIFF/ PLT) monocytes 8.9 % normal Not Available [address], [address], 10/06/2021 05:10:58 10/05/20 21 10/06/2021 CBC (INCL UDES DIFF/ PLT) eosinophils 1.0 % normal Not Available [address], [address], 10/06/2021 05:10:58 10/05/20 21 10/06/2021 CBC (INCL UDES DIFF/ PLT) basophils 0.3 % normal Not Available [address], [address], 10/06/2021 05:10:58 10/05/20 21 10/06/2021 HEPAT IC FUNCT ION PANEL protein, total 6.8 g/dL 6.1-8. 1 normal Not Available [address], [address], 10/06/2021 05:10:57 10/05/20 21 10/06/2021 HEPAT IC FUNCT ION PANEL albumin 4.3 g/dL 3.6-5. 1 normal Not Available [address], [address], 10/06/2021 05:10:57 10/05/20 21 10/06/2021 HEPAT IC FUNCT ION PANEL globulin 2.5 g/dL_ (calc ) 1.9-3. 7 normal Not Available [address], [address], 10/06/2021 05:10:57 10/05/20 21 10/06/2021 HEPAT IC FUNCT ION PANEL albumin/glob ulin ratio 1.7 (calc ) 1.0-2. 5 normal Not Available [address], [address], 10/06/2021 05:10:57 10/05/20 21 10/06/2021 HEPAT IC FUNCT ION PANEL bilirubin, total 0.6 mg/dL 0.2-1. 2 normal Not Available [facility] [employer] [address] [address] [place], [address], 10/06/2021 05:10:57 10/05/20 21 10/06/2021 HEPAT IC FUNCT ION PANEL bilirubin, direct 0.1 mg/dL < or = 0.2 normal Not Available [address] [address] [place], [address], 10/06/2021 05:10:57 10/05/2010/06/2021 HEPAT IC FUNCT ION PANEL bilirubin, indirect 0.5 mg/dL _(lillian c) 0.2-1. 2 normal Not Available [address] [address] [place], [address], 10/06/2021 05:10:57 10/05/2010/06/2021 HEPAT IC FUNCT ION PANEL alkaline phosphatase 82 U/L 37-153 normal Not Available [facility] [employer] [address] [address] [place], [address], 10/06/2021 05:10:57 10/05/20 21 10/06/2021 HEPAT IC FUNCT ION PANEL AST 43 U/L 10-35 high Not Available [address] [address] [place], [address], 10/06/2021 05:10:57 10/05/2010/06/2021 HEPAT IC FUNCT ION PANEL ALT 28 U/L 6-29 normal Not Available [address] [address] [place], [address], 10/06/2021 05:10:57 10/05/2010/06/2021 BASIC METAB OLIC PANEL glucose 101 mg/dL 65-99 high Fasti ng refer ence inter jer For someo ne witho ut known diabe danny, a gluco se value betwe en 100 and 125 mg/dL is consi stent with predi abete s and shoul d be confi rmed with a follo w-up test. Not Available [address], [address], 10/06/2021 05:10:57 10/05/20 21 10/06/2021 BASIC METAB OLIC PANEL urea nitrogen (BUN) 13 mg/dL 7-25 normal Not Available [address], [address], 10/06/2021 05:10:57 10/05/2010/06/2021 BASIC METAB OLIC PANEL creatinine 0.81 mg/dL 0.60-0 .93 normal For patie nts >49 years of age, the refer ence limit for Creat inine is appro ximat nighat 13% highe r for peopl e ident ified as Afric an-Am cynthia n. Not Available [address], [address], 10/06/2021 05:10:57 10/05/2010/06/2021 BASIC METAB OLIC PANEL eGFR non-afr. grenadian 72 mL/mi n/1.7 3m2 > or = 60 normal Not Available [address] [address] [place], [address], 10/06/2021 05:10:57 10/05/2010/06/2021 BASIC METAB OLIC PANEL eGFR 84 mL/mi n/1.7 3m2 > or = 60 normal Not Available [facility] [address] [address] [place], [address], 10/06/2021 05:10:57 10/05/2010/06/2021 BASIC METAB OLIC PANEL BUN/creatini ne ratio not applic able (calc ) 6-22 Not Available [facility] [address] [address] [place], [address], 10/06/2021 05:10:57 10/05/20 21 10/06/2021 BASIC METAB OLIC PANEL sodium 139 mmol/ L 135-14 6 normal Not Available [address], [address], 10/06/2021 05:10:57 10/05/20 21 10/06/2021 BASIC METAB OLIC PANEL potassium 4.7 mmol/ L 3.5-5. 3 normal Not Available [address], [address], 10/06/2021 05:10:57 10/05/20 21 10/06/2021 BASIC METAB OLIC PANEL chloride 103 mmol/ L 98-110 normal Not Available [address], [address], 10/06/2021 05:10:57 10/05/20 21 10/06/2021 BASIC METAB OLIC PANEL carbon dioxide 28 mmol/ L 20-32 normal Not Available [address], [address], 10/06/2021 05:10:57 10/05/20 21 10/06/2021 BASIC METAB OLIC PANEL calcium 10.0 mg/dL 8.6-10 .4 normal Not Available [address], [address], 10/06/2021 05:10:57 10/05/20 21 10/06/2021 LIPID PANEL WITH RATIO S cholesterol, total 152 mg/dL <200 normal Not Available [address], [address], 10/06/2021 05:10:56 10/05/20 21 10/06/2021 LIPID PANEL WITH RATIO S HDL cholesterol 47 mg/dL > or = 50 low Not Available [address], [address], 10/06/2021 05:10:56 10/05/20 21 10/06/2021 LIPID PANEL WITH RATIO S triglyceride s 97 mg/dL <150 normal Not Available [address], [address], 10/06/2021 05:10:56 10/05/20 21 10/06/2021 LIPID PANEL WITH RATIO S LDL-choleste rol 86 mg/dL _(lillian c) normal Refer ence range : <100 Beba able range <100 mg/dL for prima ry preve ntion ; <70 mg/dL for patie nts with CHD or diabe tic patie nts with > or = 2 CHD risk facto rs. LDL-C is now calcu lated using the Renetta n-Hop kins arronu shai n, which is a valid ated novel hero manuel accur acy than the Fried jessy equat ion in the estim ation of LDL-C . Renetta roblero SS et al. JERICA. 2013; 310(1 9): 2061- 2068 (http ://ed ucati on.Qu Ritesh Verafin. com/f aq/FA Q164) Not Available [facility] [address] [address] [place], [address], 10/06/2021 05:10:56 10/05/20 21 10/06/2021 LIPID PANEL WITH RATIO S chol/HDLC ratio 3.2 (calc ) <5.0 normal Not Available [address], [address], 10/06/2021 05:10:56 10/05/20 21 10/06/2021 LIPID PANEL WITH RATIO S LDL/HDL ratio 1.8 (calc ) Below avera ge Risk: <2.34 [place] ge Risk: 2.35- 4.12 Moder ate Risk: 4.13- 5.56 High Risk: >5.57 Not Available [facility] [address] [place], [address], 10/06/2021 05:10:56 10/05/20 21 10/06/2021 LIPID PANEL WITH RATIO S non HDL cholesterol 105 mg/dL _(lillian c) <130 normal For patie nts with diabe danny plus 1 major ASCVD risk facto r, treat ing to a non-H DL-C goal of <100 mg/dL (LDL- C of <70 mg/dL ) is roseann solo optio n. Not Available [facility] [address] [address] [place], [address], 10/06/2021 05:10:56 10/05/20 21 10/06/2021 TSH+F REE T4 TSH 2.91 mIU/L 0.40-4 .50 normal Not Available [facility] [address] [address] [place], [address], 10/06/2021 05:10:56 10/05/20 21 10/06/2021 TSH+F REE T4 T4, free 1.1 NG/dL 0.8-1. 8 normal Not Available [facility] [address] [address] [place], [address], 10/06/2021 05:10:56 04/05/20 22 04/06/2022 CBC (INCL UDES DIFF/ PLT) white blood cell count 5.7 thous and/u L 3.8-10 .8 normal Not Available [facility] [address] [address] [place], [address], 04/06/2022 04:18:46 04/05/20 22 04/06/2022 CBC (INCL UDES DIFF/ PLT) red blood cell count 4.53 nas on/uL 3.80-5 .10 normal Not Available [facility] [address] [place], [address], 04/06/2022 04:18:46 04/05/20 22 04/06/2022 CBC (INCL UDES DIFF/ PLT) hemoglobin 13.2 g/dL 11.7-1 5.5 normal Not Available [facility] [address] [address] [place], [address], 04/06/2022 04:18:46 04/05/20 22 04/06/2022 CBC (INCL UDES DIFF/ PLT) hematocrit 41.0 % 35.0-4 5.0 normal Not Available [address], [address], 04/06/2022 04:18:46 04/05/20 22 04/06/2022 CBC (INCL UDES DIFF/ PLT) MCV 90.5 fL 80.0-1 00.0 normal Not Available [address], [address], 04/06/2022 04:18:46 04/05/20 22 04/06/2022 CBC (INCL UDES DIFF/ PLT) MCH 29.1 pg 27.0-3 3.0 normal Not Available [address], [address], 04/06/2022 04:18:46 04/05/20 22 04/06/2022 CBC (INCL UDES DIFF/ PLT) MCHC 32.2 g/dL 32.0-3 6.0 normal Not Available [address], [address], 04/06/2022 04:18:46 04/05/20 22 04/06/2022 CBC (INCL UDES DIFF/ PLT) RDW 11.7 % 11.0-1 5.0 normal Not Available [address], [address], 04/06/2022 04:18:46 04/05/20 22 04/06/2022 CBC (INCL UDES DIFF/ PLT) platelet count 260 thous and/u L 140-40 0 normal Not Available [address], [address], 04/06/2022 04:18:46 04/05/20 22 04/06/2022 CBC (INCL UDES DIFF/ PLT) MPV 11.0 fL 7.5-12 .5 normal Not Available [address], [address], 04/06/2022 04:18:46 04/05/20 22 04/06/2022 CBC (INCL UDES DIFF/ PLT) absolute neutrophils 3677 cells /uL 1500-7 800 normal Not Available [address], [address], 04/06/2022 04:18:46 04/05/20 22 04/06/2022 CBC (INCL UDES DIFF/ PLT) absolute lymphocytes 1442 cells /uL 850-39 00 normal Not Available [address], [address], 04/06/2022 04:18:46 04/05/20 22 04/06/2022 CBC (INCL UDES DIFF/ PLT) absolute monocytes 450 cells /uL 200-95 0 normal Not Available [address], [address], 04/06/2022 04:18:46 04/05/20 22 04/06/2022 CBC (INCL UDES DIFF/ PLT) absolute eosinophils 108 cells /uL 15-500 normal Not Available [address], [address], 04/06/2022 04:18:46 04/05/20 22 04/06/2022 CBC (INCL UDES DIFF/ PLT) absolute basophils 23 cells /uL 0-200 normal Not Available [facility] [address], [address], 04/06/2022 04:18:46 04/05/20 22 04/06/2022 CBC (INCL UDES DIFF/ PLT) neutrophils 64.5 % normal Not Available [address], [address], 04/06/2022 04:18:46 04/05/20 22 04/06/2022 CBC (INCL UDES DIFF/ PLT) lymphocytes 25.3 % normal Not Available [address], [address], 04/06/2022 04:18:46 04/05/20 22 04/06/2022 CBC (INCL UDES DIFF/ PLT) monocytes 7.9 % normal Not Available [address], [address], 04/06/2022 04:18:46 04/05/20 22 04/06/2022 CBC (INCL UDES DIFF/ PLT) eosinophils 1.9 % normal Not Available [address], [address], 04/06/2022 04:18:46 04/05/20 22 04/06/2022 CBC (INCL UDES DIFF/ PLT) basophils 0.4 % normal Not Available [address], [address], 04/06/2022 04:18:46 04/05/20 22 04/06/2022 HEPAT IC FUNCT ION PANEL protein, total 6.9 g/dL 6.1-8. 1 normal Not Available [address], [address], 04/06/2022 04:18:45 04/05/20 22 04/06/2022 HEPAT IC FUNCT ION PANEL albumin 4.3 g/dL 3.6-5. 1 normal Not Available [facility] [address], [address], 04/06/2022 04:18:45 04/05/20 22 04/06/2022 HEPAT IC FUNCT ION PANEL globulin 2.6 g/dL_ (calc ) 1.9-3. 7 normal Not Available [address], [address], 04/06/2022 04:18:45 04/05/20 22 04/06/2022 HEPAT IC FUNCT ION PANEL albumin/glob ulin ratio 1.7 (calc ) 1.0-2. 5 normal Not Available [address], [address], 04/06/2022 04:18:45 04/05/20 22 04/06/2022 HEPAT IC FUNCT ION PANEL bilirubin, total 0.6 mg/dL 0.2-1. 2 normal Not Available [address], [address], 04/06/2022 04:18:45 04/05/20 22 04/06/2022 HEPAT IC FUNCT ION PANEL bilirubin, direct 0.1 mg/dL < or = 0.2 normal Not Available [address], [address], 04/06/2022 04:18:45 04/05/20 22 04/06/2022 HEPAT IC FUNCT ION PANEL bilirubin, indirect 0.5 mg/dL _(lillian c) 0.2-1. 2 normal Not Available [address], [address], 04/06/2022 04:18:45 04/05/20 22 04/06/2022 HEPAT IC FUNCT ION PANEL alkaline phosphatase 92 U/L 37-153 normal Not Available [address] [address] [place], [address], 04/06/2022 04:18:45 04/05/20 22 04/06/2022 HEPAT IC FUNCT ION PANEL AST 35 U/L 10-35 normal Not Available [address], [address], 04/06/2022 04:18:45 04/05/20 22 04/06/2022 HEPAT IC FUNCT ION PANEL ALT 18 U/L 6-29 normal Not Available [address], [address], 04/06/2022 04:18:45 04/05/20 22 04/06/2022 HEMOG LOBIN A1C hemoglobin A1C 5.8 %_of_ total _HGB <5.7 high For someo ne witho ut known diabe danny, a hemog lobin A1c value betwe en 5.7% and 6.4% is consi stent with predi abete s and shoul d be confi rmed with a follo w-up test. For someo ne with known diabe danny, a value <7% indic ates that their diabe danny is well contr olled . A1c targe ts shoul d be indiv idual ized based on durat ion of diabe danny, age, comor bid condi tions , and other consi derat ions. This assay resul t is consi stent with an incre ased risk of diabe danny. Curre ntly, no conse nsus exist s kae mao use of hemog lobin A1c for diagn osis of diabe danny for child kip. Not Available [facility] [address] [address] [place], [address], 04/06/2022 04:18:45 04/05/20 22 04/06/2022 BASIC METAB OLIC PANEL glucose 97 mg/dL 65-99 normal Fasti ng refer ence inter jer Not Available [facility] [address] [address] [place], [address], 04/06/2022 04:18:44 04/05/20 22 04/06/2022 BASIC METAB OLIC PANEL urea nitrogen (BUN) 11 mg/dL 7-25 normal Not Available [facility] [address] [place], [address], 04/06/2022 04:18:44 04/05/20 22 04/06/2022 BASIC METAB OLIC PANEL creatinine 0.74 mg/dL 0.60-0 .93 normal For patie nts >49 years of age, the refer ence limit for Creat inine is appro ximat nighat 13% highe r for peopl e ident ified as Afric an-Am cynthia n. Not Available [address], [address], 04/06/2022 04:18:44 04/05/20 22 04/06/2022 BASIC METAB OLIC PANEL eGFR non-afr. grenadian 80 mL/mi n/1.7 3m2 > or = 60 normal Not Available [address], [address], 04/06/2022 04:18:44 04/05/20 22 04/06/2022 BASIC METAB OLIC PANEL eGFR 92 mL/mi n/1.7 3m2 > or = 60 normal Not Available [address], [address], 04/06/2022 04:18:44 04/05/20 22 04/06/2022 BASIC METAB OLIC PANEL BUN/creatini ne ratio not applic able (calc ) 6-22 Not Available [address], [address], 04/06/2022 04:18:44 04/05/20 22 04/06/2022 BASIC METAB OLIC PANEL sodium 142 mmol/ L 135-14 6 normal Not Available [address], [address], 04/06/2022 04:18:44 04/05/20 22 04/06/2022 BASIC METAB OLIC PANEL potassium 4.2 mmol/ L 3.5-5. 3 normal Not Available [address], [address], 04/06/2022 04:18:44 04/05/20 22 04/06/2022 BASIC METAB OLIC PANEL chloride 106 mmol/ L 98-110 normal Not Available [address], [address], 04/06/2022 04:18:44 04/05/20 22 04/06/2022 BASIC METAB OLIC PANEL carbon dioxide 28 mmol/ L 20-32 normal Not Available [address], [address], 04/06/2022 04:18:44 04/05/20 22 04/06/2022 BASIC METAB OLIC PANEL calcium 9.6 mg/dL 8.6-10 .4 normal Not Available [address], [address], 04/06/2022 04:18:44 04/05/20 22 04/06/2022 LIPID PANEL , [place] cholesterol, total 170 mg/dL <200 normal Not Available [address], [address], 04/06/2022 04:18:44 04/05/20 22 04/06/2022 LIPID PANEL , [place] HDL cholesterol 44 mg/dL > or = 50 low Not Available [address], [address], 04/06/2022 04:18:44 04/05/20 22 04/06/2022 LIPID PANEL , [place] triglyceride s 150 mg/dL <150 high Not Available [address], [address], 04/06/2022 04:18:44 04/05/20 22 04/06/2022 LIPID PANEL , [place] LDL-choleste rol 101 mg/dL _(lillian c) high Refer ence range : <100 Beba able range <100 mg/dL for prima ry preve ntion ; <70 mg/dL for patie nts with CHD or diabe tic patie nts with > or = 2 CHD risk facto rs. LDL-C is now calcu lated using the Renetta n-Hop kins calcu shai n, which is a valid ated novel metho d farida jameson r accur acy than the Fried jessy equat ion in the estim ation of LDL-C . Renetta roblero SS et al. JERICA. 2013; 310(1 9): 2061- 2068 (http ://ed ucati on.Anali simpsonStackAdapt. com/f aq/FA Q164) Not Available [address], [address], 04/06/2022 04:18:44 04/05/20 22 04/06/2022 LIPID PANEL , STAND JAX chol/HDLC ratio 3.9 (calc ) <5.0 normal Not Available [address], [address], 04/06/2022 04:18:44 04/05/20 22 04/06/2022 LIPID PANEL , STAND JAX non HDL cholesterol 126 mg/dL _(lillian c) <130 normal For patie nts with diabe danny plus 1 major ASCVD risk facto r, treat ing to a non-H DL-C goal of <100 mg/dL (LDL- C of <70 mg/dL ) is consi mayuri morrell n. Not Available [address], [address], 04/06/2022 04:18:44 04/05/20 22 04/06/2022 TSH+F REE T4 TSH 2.57 mIU/L 0.40-4 .50 normal Not Available [address], [address], 04/06/2022 04:18:43 04/05/20 22 04/06/2022 TSH+F REE T4 T4, free 1.1 NG/dL 0.8-1. 8 normal Not Available [facility] [address], [address], 04/06/2022 04:18:43 12/12/19 24 12/13/2023 TSH+F REE T4 TSH 2.90 mIU/L 0.40-4 .50 normal Not Available [facility] [address], [address], 12/13/2023 03:21:01 12/12/19 24 12/13/2023 TSH+F REE T4 T4, free 1.1 NG/dL 0.8-1. 8 normal Not Available [address], [address], 12/13/2023 03:21:01 12/12/19 24 12/13/2023 LIPID PANEL WITH RATIO S cholesterol, total 172 mg/dL <200 normal Not Available [address], [address], 12/13/2023 03:21:02 12/12/19 24 12/13/2023 LIPID PANEL WITH RATIO S HDL cholesterol 48 mg/dL > or = 50 low Not Available [address], [address], 12/13/2023 03:21:02 12/12/19 24 12/13/2023 LIPID PANEL WITH RATIO S triglyceride s 123 mg/dL <150 normal Not Available [address], [address], 12/13/2023 03:21:02 12/12/1912/13/2023 LIPID PANEL WITH RATIO S LDL-choleste rol 102 mg/dL _(lillian c) high Refer ence range : <100 Beba able range <100 mg/dL for prima ry preve ntion ; <70 mg/dL for patie nts with CHD or diabe tic patie nts with > or = 2 CHD risk facto rs. LDL-C is now calcu lated using the Renetta roblero-Hop kins nemesio gibbons n, which is a valid ated novel hero dunn than the Fried jessy equat ion in the estim ation of LDL-C . Renetta roblero SS et al. JERICA. 2013; 310(1 9): 2061- 2068 (http ://ed ucati on.Qu estDi Jelasticos tics. com/f aq/FA Q164) Not Available [address] [address] [place], [address], 12/13/2023 03:21:02 12/12/1912/13/2023 LIPID PANEL WITH RATIO S chol/HDLC ratio 3.6 (calc ) <5.0 normal Not Available [address] [address] [place], [address], 12/13/2023 03:21:02 12/12/1912/13/2023 LIPID PANEL WITH RATIO S LDL/HDL ratio 2.1 (calc ) Below avera ge Risk: <2.34 [place] ge Risk: 2.35- 4.12 Moder ate Risk: 4.13- 5.56 High Risk: >5.57 Not Available [address] [address] [place], [address], 12/13/2023 03:21:02 12/12/1912/13/2023 LIPID PANEL WITH RATIO S non HDL cholesterol 124 mg/dL _(lillian c) <130 normal For patie nts with diabe danny plus 1 major ASCVD risk facto r, treat ing to a non-H DL-C goal of <100 mg/dL (LDL- C of <70 mg/dL ) is consi mayuri a cristopher petaji c optio n. Not Available [address] [address] [place], [address], 12/13/2023 03:21:02 12/12/1912/13/2023 BASIC METAB OLIC PANEL glucose 99 mg/dL 65-99 normal Fasti ng refer ence inter jer Not Available [address] [address] [place], [address], 12/13/2023 03:21:03 12/12/1912/13/2023 BASIC METAB OLIC PANEL urea nitrogen (BUN) 14 mg/dL 7-25 normal Not Available [address] [address] [place], [address], 12/13/2023 03:21:03 12/12/19 24 12/13/2023 BASIC METAB OLIC PANEL creatinine 0.64 mg/dL 0.60-1 .00 normal Not Available [address], [address], 12/13/2023 03:21:03 12/12/19 24 12/13/2023 BASIC METAB OLIC PANEL eGFR 92 mL/mi n/1.7 3m2 > or = 60 normal Not Available [address], [address], 12/13/2023 03:21:03 12/12/19 24 12/13/2023 BASIC METAB OLIC PANEL BUN/creatini ne ratio SEE NOTE: (calc ) 6-22 Not Repor noe: BUN and Creat inine are withi n refer ence range . Not Available [address], [address], 12/13/2023 03:21:03 12/12/19 24 12/13/2023 BASIC METAB OLIC PANEL sodium 140 mmol/ L 135-14 6 normal Not Available [address], [address], 12/13/2023 03:21:03 12/12/19 24 12/13/2023 BASIC METAB OLIC PANEL potassium 4.0 mmol/ L 3.5-5. 3 normal Not Available [address], [address], 12/13/2023 03:21:03 12/12/19 24 12/13/2023 BASIC METAB OLIC PANEL chloride 103 mmol/ L 98-110 normal Not Available [address], [address], 12/13/2023 03:21:03 12/12/19 24 12/13/2023 BASIC METAB OLIC PANEL carbon dioxide 30 mmol/ L 20-32 normal Not Available [address] [address] [place], [address], 12/13/2023 03:21:03 12/12/19 24 12/13/2023 BASIC METAB OLIC PANEL calcium 9.6 mg/dL 8.6-10 .4 normal Not Available [facility] [address] [address] [place], [address], 12/13/2023 03:21:03 12/12/19 24 12/13/2023 HEMOG LOBIN A1C hemoglobin A1C 5.9 %_of_ total _HGB <5.7 high For someo ne witho ut known diabe danny, a hemog lobin A1c value betwe en 5.7% and 6.4% is consi stent with predi abete s and shoul d be confi rmed with a follo w-up test. For someo ne with known diabe danny, a value <7% indic ates that their diabe danny is well contr olled . A1c targe ts shoul d be indiv idual ized based on durat ion of diabe danny, age, comor bid condi tions , and other consi derat ions. This assay resul t is consi stent with an incre ased risk of diabe danny. Curre ntly, no conse nsus exist s regar ding use of hemog lobin A1c for diagn osis of diabe danny for child kip. HbA1c perfo rmed on Abbot t platf orm. Not Available [address] [address] [place], [address], 12/13/2023 03:21:04 12/12/19 24 12/13/2023 HEPAT IC FUNCT ION PANEL protein, total 6.8 g/dL 6.1-8. 1 normal Not Available [facility] [address] [address] [place], [address], 12/13/2023 03:21:05 12/12/19 24 12/13/2023 HEPAT IC FUNCT ION PANEL albumin 4.3 g/dL 3.6-5. 1 normal Not Available [facility] [address] [address] [place], [address], 12/13/2023 03:21:05 12/12/19 24 12/13/2023 HEPAT IC FUNCT ION PANEL globulin 2.5 g/dL_ (calc ) 1.9-3. 7 normal Not Available [address] [address] [place], [address], 12/13/2023 03:21:05 12/12/19 24 12/13/2023 HEPAT IC FUNCT ION PANEL albumin/glob ulin ratio 1.7 (calc ) 1.0-2. 5 normal Not Available [address], [address], 12/13/2023 03:21:05 12/12/19 24 12/13/2023 HEPAT IC FUNCT ION PANEL bilirubin, total 0.6 mg/dL 0.2-1. 2 normal Not Available [address], [address], 12/13/2023 03:21:05 12/12/19 24 12/13/2023 HEPAT IC FUNCT ION PANEL bilirubin, direct 0.1 mg/dL < or = 0.2 normal Not Available [address] [address] [place], [address], 12/13/2023 03:21:05 12/12/19 24 12/13/2023 HEPAT IC FUNCT ION PANEL bilirubin, indirect 0.5 mg/dL _(lillian c) 0.2-1. 2 normal Not Available [address] [address] [place], [address], 12/13/2023 03:21:05 12/12/19 24 12/13/2023 HEPAT IC FUNCT ION PANEL alkaline phosphatase 89 U/L 37-153 normal Not Available [address] [address] [place], [address], 12/13/2023 03:21:05 12/12/19 24 12/13/2023 HEPAT IC FUNCT ION PANEL AST 38 U/L 10-35 high Not Available [address], [address], 12/13/2023 03:21:05 12/12/19 24 12/13/2023 HEPAT IC FUNCT ION PANEL ALT 19 U/L 6-29 normal Not Available [address], [address], 12/13/2023 03:21:05 12/12/19 24 12/13/2023 CBC (INCL UDES DIFF/ PLT) white blood cell count 6.9 thous and/u L 3.8-10 .8 normal Not Available [address], [address], 12/13/2023 03:21:06 12/12/19 24 12/13/2023 CBC (INCL UDES DIFF/ PLT) red blood cell count 4.73 nas on/uL 3.80-5 .10 normal Not Available [address], [address], 12/13/2023 03:21:06 12/12/19 24 12/13/2023 CBC (INCL UDES DIFF/ PLT) hemoglobin 13.4 g/dL 11.7-1 5.5 normal Not Available [address], [address], 12/13/2023 03:21:06 12/12/19 24 12/13/2023 CBC (INCL UDES DIFF/ PLT) hematocrit 41.3 % 35.0-4 5.0 normal Not Available [address], [address], 12/13/2023 03:21:06 12/12/19 24 12/13/2023 CBC (INCL UDES DIFF/ PLT) MCV 87.3 fL 80.0-1 00.0 normal Not Available [address], [address], 12/13/2023 03:21:06 12/12/19 24 12/13/2023 CBC (INCL UDES DIFF/ PLT) MCH 28.3 pg 27.0-3 3.0 normal Not Available [address], [address], 12/13/2023 03:21:06 12/12/19 24 12/13/2023 CBC (INCL UDES DIFF/ PLT) MCHC 32.4 g/dL 32.0-3 6.0 normal Not Available [address], [address], 12/13/2023 03:21:12/12/19 24 12/13/2023 CBC (INCL UDES DIFF/ PLT) RDW 12.1 % 11.0-1 5.0 normal Not Available [address], [address], 12/13/2023 03:21:06 12/12/19 24 12/13/2023 CBC (INCL UDES DIFF/ PLT) platelet count 323 thous and/u L 140-40 0 normal Not Available [address], [address], 12/13/2023 03:21:12/12/19 24 12/13/2023 CBC (INCL UDES DIFF/ PLT) MPV 11.3 fL 7.5-12 .5 normal Not Available [address], [address], 12/13/2023 03:21:06 12/12/19 24 12/13/2023 CBC (INCL UDES DIFF/ PLT) absolute neutrophils 4644 cells /uL 1500-7 800 normal Not Available [address], [address], 12/13/2023 03:21:06 12/12/19 24 12/13/2023 CBC (INCL UDES DIFF/ PLT) absolute lymphocytes 1511 cells /uL 850-39 00 normal Not Available [address], [address], 12/13/2023 03:21:06 12/12/19 24 12/13/2023 CBC (INCL UDES DIFF/ PLT) absolute monocytes 621 cells /uL 200-95 0 normal Not Available [address] [place], [address], 12/13/2023 03:21:06 12/12/19 24 12/13/2023 CBC (INCL UDES DIFF/ PLT) absolute eosinophils 104 cells /uL 15-500 normal Not Available [address], [address], 12/13/2023 03:21:06 12/12/19 24 12/13/2023 CBC (INCL UDES DIFF/ PLT) absolute basophils 21 cells /uL 0-200 normal Not Available [address], [address], 12/13/2023 03:21:06 12/12/19 24 12/13/2023 CBC (INCL UDES DIFF/ PLT) neutrophils 67.3 % normal Not Available [address], [address], 12/13/2023 03:21:06 12/12/19 24 12/13/2023 CBC (INCL UDES DIFF/ PLT) lymphocytes 21.9 % normal Not Available [facility] [address], [address], 12/13/2023 03:21:06 12/12/19 24 12/13/2023 CBC (INCL UDES DIFF/ PLT) monocytes 9.0 % normal Not Available [address], [address], 12/13/2023 03:21:06 12/12/19 24 12/13/2023 CBC (INCL UDES DIFF/ PLT) eosinophils 1.5 % normal Not Available [facility] [address] [place], [address], 12/13/2023 03:21:06 12/12/19 24 12/13/2023 CBC (INCL UDES DIFF/ PLT) basophils 0.3 % normal Not Available [facility] [address] [place], [address], 12/13/2023 03:21:06 04/23/20 22 04/22/2022 US, wrist No observ ation record ed. [id number] [facility] [address], [place], [address], 01/26/2023 05:07:19 Result Notes None recorded. Problems Name Problem SNOMED Code Status Onset Date Resolution Date Notes Provider Name and Address Organization Details Recorded Time Impaired glucose tolerance 9333490 Active 2022 ZACHARY Rodriges [address] [facility], [facility] [address], [place], [address] , [facility] [employer] 3 10:49:31 Benign essential hypertension 3377341 Active 2017 Not Available [facility] 3 04:52:20 Gastroesophag eal reflux disease 859126526 Active 2017 Not Available [facility] 3 04:52:20 Gastroesophag eal reflux disease without esophagitis 387856065 Active 2021 Not Available [facility] 3 04:52:20 Localized swelling, mass and lump, upper limb Active 2021 Not Available [facility] 3 04:52:20 Impaired fasting glycemia 866899082 Active 2021 Not Available [facility] 3 04:52:20 Diverticular disease of colon 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 Procedures Surgical History Date Name Laterality Status Provider Name and Address Organization Details Recorded Time 023 Medicare Wellness CPT Code, subsequent completed SARITHA Shelton [employer] 06/10/2023 10:13:34 021 Date of Last Colonoscopy completed SARITHA Shelton [employer] [facility] 06/09/2023 14:04:21 020 biopsy of lesion of skin completed Not Available [facility] 01/26/2023 04:42:10 Hysterectomy completed Not Available [facility] 01/26/2023 04:42:10 other completed Not Available [facility] 01/26/2023 04:42:10 [employer] Surgery completed Not Available [facility] 01/26/2023 04:42:10 Remove tonsils and adenoids completed Not Available [facility] 01/26/2023 04:42:10 Gastrointestinal Surgery completed Not Available [facility] 01/26/2023 04:42:10 Imaging Results Imaging Date Name Status LastModified by Organiz ation Details LastModified Time 04/22/2022 US, wrist completed [id number] [facility] [address], [place], [address], 01/26/2023 05:07:19 Procedure Notes None recorded. Medical Equipment None Reported. Allergies Allergen ID Allergen Name Allergen Category Reaction Reaction Severity Criticality Documentation Date Start Date Code Code System Note Provider Name and Address Organization Details Recorded Time 8910 Substance with sulfonami de structure and antibacte rial mechanism of action (substanc e) medicatio n Not available Not available Not available 01/26/2023 40234 8003 SNOMED Not Available [facility] 3 05:06:45 8911 Macrodant in medicatio n Not available Not available Not available 01/26/2023 4 RxNorm Not Available [facility] 3 05:06:45 8913 Diflucan medicatio n Not available Not available Not available 01/26/2023 3 RxNorm Not Available [facility] 3 05:06:45 8914 Cipro medicatio n Not available Not available Not available 01/26/2023 517[address] 3 RxNorm Not Available [facility] 3 05:06:46 Medications Name Sig Start Date Stop Date Status Note LastModified by Organization Details LastModified Time amoxicillin 500 mg capsule 04/10 completed Not Available Not Available Not Available cefuroxime axetil 250 mg tablet 09/21 completed Not Available Not Available Not Available Vitamin C 500 mg tablet Take 1 tablet every day by oral route. 2019 active Not Available Not Available Not Avai lable metoprolol succinate ER 50 mg tablet,exte nded release 24 hr TAKE 1 TABLET BY MOUTH DAILY active Not Available Not Available No t Available hydrocodone 5 mg-acetamin ophen 325 mg tablet 04/08 completed Not Available Not Available Not Available metronidazo le 500 mg tablet 04/10 completed Not Available Not Available Not Available amlodipine 5 mg tablet TAKE 1 TABLET BY MOUTH DAILY active Not Available Not Available No t Available ketorolac 0.5 % eye drops 04/10 completed Not Available Not Available Not Available prednisolon e acetate 1 % eye drops,suspe nsion 04/10 completed Not Available Not Available Not Available methocarbam ol 750 mg tablet Take 1 tablet 3 times a day by oral route. active Not Available Not Available No t Available ciprofloxac in 0.3 % eye drops 04/10 completed Not Available Not Available Not Available cephalexin 500 mg capsule 09/21 completed Not Available Not Available Not Available diclofenac 0.1 % eye drops 04/10 completed Not Available Not Available Not Available metronidazo le 0.75 % topical cream APPLY A THIN LAYER TO THE AFFECTED AREA(S) BY TOPICAL ROUTE 2 TIMES PER DAY IN THE MORNING AND EVENING active Not Available Not Available No t Available omeprazole 20 mg capsule,del ayed release TAKE 1 CAPSULE BY MOUTH TWICE DAILY WITH MEALS active Not Available Not Available No t Available benazepril 20 mg tablet TAKE 1 TABLET BY MOUTH DAILY active Not Available Not Available No t Available Pepcid 20 mg tablet Take 1 tablet twice a day by oral route. 04/09 completed Not Available Not Available Not Available neomycin 500 mg tablet 04/10 completed Not Available Not Available Not Available Vitamin D3 25 mcg (1,000 unit) tablet Take 1 tablet every day by oral route. 04/09 completed Not Available Not Available Not Available methscopola mine 5 mg tablet BID 04/11 completed Not Available Not Available Not Available cholestyram ine (with sugar) 4 gram oral powder 04/11 completed Not Available Not Available Not Available rosuvastati n 20 mg tablet TAKE 1 TABLET BY MOUTH DAILY active Not Available Not Available No t Available Prilosec OTC 20 mg tablet,roxane yed release Take 1 tablet every day by oral route as needed. 09/21 completed Not Available Not Available Not Available chlorhexidi ne gluconate 0.12 % mouthwash 04/10 completed Not Available Not Available Not Available calcium-mag nesium-zinc takes daily 04/09 completed Not Available Not Available Not Available multivitami n daily 2017 active Not Available Not Available Not Avai lable Hair,Skin and Nails 2021 active Not Available Not Available Not Avai lable Probiotic daily 04/10 completed Not Available Not Available Not Available Suprep Bowel Prep Kit 17.5 gram-3.13 gram-1.6 gram oral solution USE DIRECTED BY PHYSCIEARL 10/09 completed Not Available Not Available Not Available flaxseed oil-omega 3,6,9 daily 2017 active Not Available Not Available Not Avai lable Shingrix (PF) 50 mcg/0.5 mL intramuscul ar suspension, kit 04/08 completed Not Available Not Available Not Available Fluzone High-Dose (PF) 180 mcg/0.5 mL intramuscul ar syringe ADM 0.5ML IM UTD 10/12 completed Not Available Not Available Not Available Vitals Date Recorded Body mass index (BMI) Body height Oxygen saturation Oxygen saturation in Arterial blood by Pulse oximetry Heart rate Body temperature Body weight Systolic blood pressure Diastolic blood pressure Provider Name and Address Organization Details Last Updated DateTime 1 27.7 kg/m2 157.48 cm 98 % 98 % 66 /min 97.7 [degF] 92354.6 g 120 mm[Hg] 80 mm[Hg] Not Available [facility] 3 04:45:36 Date Recorded Body mass index (BMI) Body height Oxygen saturation Oxygen saturation in Arterial blood by Pulse oximetry Heart rate Respiratory rate Body temperature Body weight Systolic blood pressure Diastolic blood pressure Provider Name and Address Organization Details Last Updated DateTime 2 27.3 kg/m2 157.48 cm 98 % 98 % 64.99 /min 16 /min 97.3 [degF] 68121.2 6 g 114 mm[Hg] 64 mm[Hg] Not Available [facility] 3 04:45:37 Date Recorded Body mass index (BMI) Body height Oxygen saturation Oxygen saturation in Arterial blood by Pulse oximetry Heart rate Respiratory rate Body temperature Body weight Systolic blood pressure Diastolic blood pressure Provider Name and Address Organization Details Last Updated DateTime 2 27.4 kg/m2 157.48 cm 96 % 96 % 72 /min 16 /min 97.7 [degF] 91155.8 6 g 130 mm[Hg] 82 mm[Hg] Not Available [facility] 3 04:45:37 Date Recorded Body height Body temperature Body mass index (BMI) Body weight Respiratory rate Oxygen saturation Oxygen saturation in Arterial blood by Pulse oximetry Heart rate Systolic blood pressure Diastolic blood pressure Provider Name and Address Organization Details Last Updated DateTime 3 157.48 cm 98.4 [degF] 27.4 kg/m2 38115.8 6 g 16 /min 95 % 95 % 76 /min 122 mm[Hg] 80 mm[Hg] SARITHA Shelton [employer] 3 10:18:58 Date Recorded Systolic blood pressure Diastolic blood pressure Provider Name and Address Organization Details Last Updated DateTime 06/10/2023 110 mm[Hg] 70 mm[Hg] ZACHARY Rodriges [address] [facility], [facility] [address], [place], [address], [employer] 06/10/2023 10:51:26 Date Recorded Body height Provider Name an d Address Organization Details Last Updated DateTime 12/08/2023 157.48 cm SARITHA Shelton [employer] 12/08/2023 13:46:37 Date Recorded Body mass index (BMI) Body weight Heart rate Respiratory rate Oxygen saturation Oxygen saturation in Arterial blood by Pulse oximetry Systolic blood pressure Diastolic blood pressure Provider Name and Address Organization Details Last Updated DateTime 4 27.8 kg/m2 24900.0 4 g 58 /min 16 /min 96 % 96 % 138 mm[Hg] 80 mm[Hg] ZACHARY Rodriges [address], [place], [address], [employer] [employer] [facility] [employer] 4 15:47:02 Social History Question Answer Notes LastModified by Organization Details LastModified Time Tobacco Smoking Status Former Smoker Janel FieldSARITHA null, [facility] [employer] 06/10/2023 10:13:24 Do You Have An Advance Directive? Yes [id number] Information not available 01/26/2023 What Is Your Level Of Alcohol Consumption? None [id number] [id number] Information not available 01/26/2023 Are You Blind Or Do You Have Difficulty Seeing? No [email or web address] Information not available 06/10/2023 What Is Your Level Of Caffeine Consumption? Moderate [id number] Information not available 01/26/2023 How Much Tobacco Do You Chew? None [id number] Information not available 01/26/2023 In The 14 Days Before Symptom Onset, Have You Had Close Contact With A Laboratory-conf irmed COVID-19 While That Case Was Ill? No Information not available 06/10/2023 In The 14 Days Before Symptom Onset, Have You Had Close Contact With A Person Who Is Under Investigation For COVID-19 While That Person Was Ill? No [email or web address] Information not available 06/10/2023 Are You Deaf Or Do You Have Serious Difficulty Hearing? No [email or web address] Information not available 06/10/2023 What Type Of Diet Are You Following? REGULAR [id number] [id number] Information not available 01/26/2023 Which Illicit Or Recreational Drugs Have You Used? None [email or web address] Information not available 06/10/2023 Do You Or Have You Ever Used E-cigarettes Or Vape? Never Used Electronic Cigarettes [email or web address] Information not available 06/10/2023 What Is Your Occupation? Retired [email or web address] Information not available 06/10/2023 Have There Been Any Changes To Your Family Or Social Situation? No [email or web address] Information not available 06/10/2023 Are There Any Guns Present In Your Home? Yes [email or web address] Information not available 06/10/2023 Do You Use Insect Repellent Routinely? No [email or web address] Information not available 06/10/2023 Where Do You Live? SingleLevelHouse [email or web address] Information not available 06/10/2023 Do You Have A Medical Power Of Research Compliance Specialist? Yes Satish Coughlin [email or web address] Information not available 06/10/2023 Do You Have Any Pets? No [email or web address] Information not available 06/10/2023 What Is Your Relationship Status? [id number] [id number] Information not available 01/26/2023 Do You Use Your Seat Belt Or Car Seat Routinely? Yes [email or web address] Information not available 06/10/2023 Do You Have Smoke And Carbon Monoxide Detectors In Your Home? Yes [email or web address] Information not available 06/10/2023 At What Age Did You Start Smoking Tobacco? 18 [email or web address] Information not available 06/10/2023 Are You Passively Exposed To Smoke? No [email or web address] Information not available 06/10/2023 Do You Or Have You Ever Used Smokeless Tobacco? Never Used Smokeless Tobacco [id number] Information not available 01/26/2023 Are There Any Smokers In Your House? No [email or web address] Information not available 06/10/2023 How Much Tobacco Do You Smoke? 1 PPD [id number] Information not available 01/26/2023 Do You Use Any Illicit Or Recreational Drugs? No [email or web address] Information not available 06/10/2023 Do You Use Sunscreen Routinely? Yes [email or web address] Information not available 06/10/2023 Have You Recently Traveled Abroad? No [email or web address] Information not available 06/10/2023 Do You Have Any Dietary Restrictions? No [email or web address] Information not available 06/10/2023 Do You Or Have You Ever Used Any Other Forms Of Tobacco Or Nicotine? No [email or web address] Information not available 06/10/2023 Sex: Unknown Functional Status Question Answer Note LastModified by Organizat ion Details LastModified Time Do you have difficulty walking or climbing stairs? No [email or web address] Information not available 06/10/2023 Do you have transportation difficulties? No [email or web address] Information not available 06/10/2023 Are you able to walk? YESWOREST [email or web address] Information not available 06/10/2023 Do you have difficulty doing errands alone? No [email or web address] Information not available 06/10/2023 Are you able to care for yourself? Yes [email or web address] Information n ot available 06/10/2023 Do you have difficulty dressing or bathing? No [email or web address] Information not available 06/10/2023 What is your exercise level? Moderate [id number] Information not available 01/26/2023 Mental Status Question Answer Note LastModified by Organization D etails LastModified Time Do you have difficulty concentrating, remembering or making decisions? Yes [email or web address] Information no t available 06/10/2023 Family History Relationship Description Onset Age of this Age Resolved Age Notes LastModified by Organization Details LastModified Time Mother Renal failure syndrome [email or web address] Not available 06/10 10:13:23 Father Diabetes mellitus [id number] Not available 01/26/2023 04:42:13 Medical History Condition Response BOWEL PROBLEMS Y HEARTBURN / REFLUX Y HYPERTENSION Y HIGH CHOLESTEROL / HYPERLIPIDEMIA Y Gynecological History Statement/Question Response Date of Last Pap 11/28/2007 Date of Last Mammogram 09/13/2019 Date of Last Colonoscopy 04/28/2021 Sexually Active? Y Obstetrics History GPAL:G 2 P 0 0 0 0 Type Value Living 0 Total 2 Immunizations Vaccine Type Date Status Note Provider Nam e and Address Organization Details Recorded Time zoster, unspecified formulation 9 completed Not Available [facility] 01/26/2023 05:06:19 zoster, unspecified formulation 9 completed Not Available [facility] 01/26/2023 05:06:19 Influenza, split virus, quadrivalent, preservative 8 completed Not Available [facility] 01/26/2023 05:06:19 Past Encounters Encounter ID Performer Location Encounter Start Date Encounter Closed Date Diagnosis/Indication Diagnosis SNOMED-CT Code Diagnosis ICD10 Code Diagnosis Note [id number] [facility] [place] [address] [place] [address] 04/09/2021 00:00:00 04/09/2021 13:00:58 [id number] [facility] [place] [address] [place] [address] 10/09/2021 00:00:00 10/27/2021 17:33:04 [id number] [facility] [place] [address] [place] [address] 04/09/2022 00:00:00 04/27/2022 13:29:08 [id number] [facility] [place] [address] [place] [address] 11/05/2022 00:00:00 11/25/2022 23:22:20 [id number] ZACHARY Rodriges [facility] [place] [address] [place] [address] 06/10/2023 10:12:45 06/10/2023 11:21:34 Adult health examination 092113868 Z00.00 mawe completed with routine f/u appt Screening for disorder 126768142 Z13.9 Benign ess ential hypertension 3371302 I10 stable on medication : amlodipine 5mg daily and benazepril 20mg daily and metoprolol ER 50mg daily. Hyperlipidemia 22538620 E78.5 stable on statin therapy, labs due in nov. Gastroesop hageal reflux disease 516827252 K21.9 stable on PPI therapy Impaired g lucose tolerance 2775765 R73.03 5.8%. stable. Long-term drug therapy 300286626 Z79.056 [id number] ZACHARY Rodriges [facility] [place] [address] [place] [address] 12/08/2023 13:45:45 12/08/2023 14:38:39 Benign essential hypertension 6127928 I10 stable on medication : amlodipine 5mg daily and benazepril 20mg daily and metoprolol ER 50mg daily. Hyperlipidemia 33202780 E78.5 stable on statin therapy, labs are due now. Gastroesop hageal reflux disease 856271105 K21.9 stable on PPI therapy Impaired g lucose tolerance 5079353 R73.03 5.8%. stable on last labs. due for repeat lab Long-term drug therapy 165204765 Z79.899 all routine labs are due Health Concerns Section Related Observation LastModified by Organization Detai ls LastModified Time None Recorded Concern Status LastModified by Organization Details LastModified Time None Recorded Advance Directives Directive Y: Payers Encounter Date Sequence Insurance Name Policy Number Policy Singh Covered Member ID Singh Member ID Guarantor Name 06/10/2023 1 [place] Eva Tomas [id number] Eva Tomas 06/10/2023 2 [employer] OPTIONS (MEDICARE SUPPLEMENT) PLAN N Eva Tovar Thom [id number] Eva Tovar Thom 12/08/2023 1 [place] Eva Tomas [id number] Eva Tomas 12/08/2023 2 [employer] OPTIONS (MEDICARE SUPPLEMENT) PLAN N Eva Tomas [id number] Eva Tomas Notes Date Note Type Note Provider Name and Address Organization Details Recorded Time 10/09/20 21 text/htm l HyperlipidemiaReported bypatient.Control:usually well controlled; improving; at goal Compliance:compliant; compliant with diet; exercises Complications:no coronary artery disease; no peripheral artery disease; no cardiovascular diseaseHypertensionReported bypatient.Onset/Timing:better Self Care:not under emotional stress Associated Symptoms:no shortness of breath; no fatigue; no palpitations; no decline in exercise capacity; no snoringReflux/GERDReported bypatient.Symptomsasymptomatic; no difficulty swallowing; no pain swallowing; no postprandial pain Severity:improving Context:non-smoker; no drug/alcohol abuse; no drug alcohol withdrawal; not related to food/drink Associated Symptoms:no frequent coughing; no feeling of fullness/mass in throat; no hoarseness; no food getting stuck; no belching/burping; no nausea; no vomiting; not vomiting blood; no regurgitation; no shortness of breath; no chest pain; no heartburn; no difficulty swallowing; no pain when swallowing; no bad taste; no decreased appetite; no weight loss; no black/tarry stools; no fatigue; no throat pain; no dental erosion; no bloating; no early satiety; no halitosis Not Available Drug Response Dx [facility] 10/27/2021 17:33:04 04/09/20 22 text/htm l HyperlipidemiaReported bypatient.Duration:chronic Control:usually well controlled Current Therapy:currently taking: (rosuvastatin 20mg) Compliance:compliant; compliant with diet; exercises Complications:no coronary artery disease; no peripheral artery disease; no cardiovascular disease Risk Factors:hypertensionHypertensio nReported bypatient.Duration:has noted for years Onset/Timing:better Alleviating Factors:medication Self Care:not under emotional stress Associated Symptoms:no shortness of breath; no fatigue; no palpitations; no decline in exercise capacity; no snoringReflux/GERDReported bypatient.Symptomsasymptomatic; no difficulty swallowing; no pain swallowing; no postprandial pain Severity:same Duration:present 5 or more years Onset/Timing:gone now Context:non-smoker; no drug/alcohol abuse; no drug alcohol withdrawal;related to any meal Aggravating Factors:worsened by food Associated Symptoms:no frequent coughing; no hoarseness; no food getting stuck; no belching/burping; no vomiting; not vomiting blood; no regurgitation; no shortness of breath; no chest pain; no heartburn; no difficulty swallowing; no pain when swallowing; no bad taste; no decreased appetite; no weight loss; no black/tarry stools; no fatigue; no throat pain; no dental erosion; no bloating; no early satiety; no halitosis Not Available Drug Response Dx [facility] 04/27/2022 13:29:08 11/05/20 22 text/htm l HyperlipidemiaReported bypatient.Duration:chronic Control:usually well controlled Current Therapy:currently taking: (rosuvastatin 20mg) Compliance:compliant; exercises;noncompliant with diet Complications:no coronary artery disease; no peripheral artery disease; no cardiovascular disease Risk Factors:hypertensionHypertensio nReported bypatient.Duration:has noted for years Onset/Timing:better Alleviating Factors:medication Self Care:not under emotional stress Associated Symptoms:no shortness of breath; no fatigue; no palpitations; no decline in exercise capacity; no snoringReflux/GERDReported bypatient.Symptomsasymptomatic; no difficulty swallowing; no pain swallowing; no postprandial pain Severity:same Duration:present 5 or more years Onset/Timing:gone now Context:non-smoker; no drug/alcohol abuse; no drug alcohol withdrawal; not related to food/drink Alleviating Factors:medication Associated Symptoms:no frequent coughing; no hoarseness; no food getting stuck; no belching/burping; no vomiting; not vomiting blood; no regurgitation; no shortness of breath; no chest pain; no heartburn; no difficulty swallowing; no pain when swallowing; no bad taste; no decreased appetite; no weight loss; no black/tarry stools; no fatigue; no throat pain; no dental erosion; no bloating; no early satiety; no halitosis Not Available [employer] 11/25/2022 23:22:20 06/10/20 23 text/htm l HyperlipidemiaReported bypatient.Duration:chronic Control:usually well controlled Compliance:compliant; compliant with diet; exercises Complications:no coronary artery disease; no peripheral artery disease; no cardiovascular disease Risk Factors:hypertensionHypertensio nReported bypatient.Duration:has noted for years Onset/Timing:better Alleviating Factors:medication Associated Symptoms:no shortness of breath; no fatigue; no palpitations; no decline in exercise capacity; no snoring ZACHARY Rodriges [address], [address], [employer] 06/27/2023 13:46:21 12/08/19 24 text/htm l HyperlipidemiaReported bypatient.Duration:chronic Control:usually well controlled Compliance:compliant; compliant with diet; exercises Complications:no coronary artery disease; no peripheral artery disease; no cardiovascular disease Risk Factors:hypertensionHypertensio nReported bypatient.Duration:has noted for years Onset/Timing:better Alleviating Factors:medication Associated Symptoms:no shortness of breath; no fatigue; no palpitations; no decline in exercise capacity; no snoring ZACHARY Rodriges [address] [facility], [place] [address], [place], [address], [employer] 12/12/2023 15:48:18 OBGyn Episode No OBEpisode recorded.
== END 2025-03-04 12:44 | disposition home or self-care (01) ==
LOC: ANHIMG 12:45
PROVIDERS: PCP Family Medicine; Visit Provider Family Medicine
DX: Z78.0 Asymptomatic menopausal state (principal); M85.88 Other specified disorders of bone density and structure, other site; M85.852 Other specified disorders of bone density and structure, left thigh; M85.851 Other specified disorders of bone density and structure, right thigh
CPT/HCPCS: 77080

== ENCOUNTER 2025-03-05 10:24 | Outpatient (CLI) | payer MEDICARE, SELFPAY ==
--- NOTE | 2025-03-05 11:30 | NEURO_ITS ---
Impression: # Complains of pain/numbness in hands. ? # Normal Nerve Conduction Study. ? # No Carpal Tunnel Syndrome or ulnar neuropathy. ? # Normal needle/EMG exam. ? # Clinical correlation recommended. Nerve Conduction Studies Anti Sensory Summary Table ?Stim Site NR Peak (ms) P-T Amp (?V) Site1 Site2 Delta-P (ms) Dist (cm) Edvin (m/s) Left Median Anti Sensory (2-3nd Digit) Wrist ? 2.7 56.8 Wrist 2-3nd Digit 2.7 14.0 52 Wrist ? 2.7 68.8 Wrist 2-3nd Digit 2.7 14.0 52 Right Median Anti Sensory (2-3nd Digit) Wrist ? 3.0 50.2 Wrist 2-3nd Digit 3.0 14.0 47 Wrist ? 3.1 53.7 Wrist 2-3nd Digit 3.0 14.0 47 Left Radial Anti Sensory (Base 1st Digit) Wrist ? 1.7 52.6 Wrist Base 1st Digit 1.7 0.0 Right Radial Anti Sensory (Base 1st Digit) Wrist ? 2.2 42.8 Wrist Base 1st Digit 2.2 0.0 Left Ulnar Anti Sensory (5th Digit) Wrist ? 2.3 35.2 Wrist 5th Digit 2.3 14.0 61 Right Ulnar Anti Sensory (5th Digit) Wrist ? 2.5 71.6 Wrist 5th Digit 2.5 14.0 56 Motor Summary Table ?Stim Site NR Onset (ms) O-P Amp (mV) Site1 Site2 Delta-0 (ms) Dist (cm) Edvin (m/s) Left Median Motor (Abd Poll Brev) Wrist ? 2.9 6.4 Elbow Wrist 4.9 28.0 57 Elbow ? 7.8 4.2 Right Median Motor (Abd Poll Brev) Wrist ? 3.0 8.8 Elbow Wrist 4.7 27.0 57 Elbow ? 7.7 6.4 Left Ulnar Motor (Abd Dig Minimi) Wrist ? 2.5 6.4 A Elbow Wrist 5.1 29.0 57 A Elbow ? 7.6 4.4 B Elbow Wrist 3.5 20.0 57 B Elbow ? 6.0 5.5 Right Ulnar Motor (Abd Dig Minimi) Wrist ? 2.3 6.5 A Elbow Wrist 4.4 26.0 59 A Elbow ? 6.7 5.2 B Elbow Wrist 3.5 20.0 57 B Elbow ? 5.8 5.5 F Wave Studies ?NR F-Lat (ms) L-R F-Lat (ms) Left Median (Mrkrs) (Abd Poll Brev) ? 26.76 1.53 Right Median (Mrkrs) (Abd Poll Brev) ? 28.28 1.53 Left Ulnar (Mrkrs) (Abd Dig Min) ? 27.34 0.33 Right Ulnar (Mrkrs) (Abd Dig Min) ? 27.67 0.33 EMG ?Side Muscle Nerve Root Ins Act Fibs Amp Dur Recrt Comment Right 1stDorInt Ulnar C8-T1 Nml Nml Nml Nml Nml Right Ext Indicis Radial (Post Int) C7-8 Nml Nml Nml Nml Nml Right Ext Digitorum Radial (Post Int) C7-8 Nml Nml Nml Nml Nml Right BrachioRad Radial C5-6 Nml Nml Nml Nml Nml Right PronatorTeres Median C6-7 Nml Nml Nml Nml Nml Right Abd Poll Brev Median C8-T1 Nml Nml Nml Nml Nml Right ABD Dig Min Ulnar C8-T1 Nml Nml Nml Nml Nml Right FlexPolLong Median (Ant Int) C7-8 Nml Nml Nml Nml Nml Right Abd Poll Long Radial (Post Int) C7-8 Nml Nml Nml Nml Nml Left 1stDorInt Ulnar C8-T1 Nml Nml Nml Nml Nml Left Ext Indicis Radial (Post Int) C7-8 Nml Nml Nml Nml Nml Left Ext Digitorum Radial (Post Int) C7-8 Nml Nml Nml Nml Nml Left BrachioRad Radial C5-6 Nml Nml Nml Nml Nml Left PronatorTeres Median C6-7 Nml Nml Nml Nml Nml Left Abd Poll Brev Median C8-T1 Nml Nml Nml Nml Nml Left ABD Dig Min Ulnar C8-T1 Nml Nml Nml Nml Nml MTDD
--- OUTSIDE RECORDS SUMMARY | 2025-03-05 11:39 | XMS_ITS | Encounter Summary ---
Author Organization [facility] Address [address] [place] [address] Care Team Providers Care Marketing Teacher Name Role Phone Loren Clements Primary Care Provider [phone] Encounter Details Date Type Department Care Team (Late st Contact Info) Description 12/11/2019 Chart Note [facility] Rad[facility] Therapy [address] [place] [address] [place] [address] [place] [address] Social History Tobacco Use Types [...] on filedocumented in this encounter Care Teams Marketing Teacher Relationship Specialty Start Date End Date Loren Clements PA PCP - General Physician Fiberglass Quality Technician 10/18/19 documented as of this encounter
--- OUTSIDE RECORDS SUMMARY | 2025-03-05 11:39 | XMS_ITS | Clinical Summary ---
Author Organization [facility] Address [address] [place] [address] Care Team Providers Care Disease Case Manager Name Role Phone Unavailable Primary Care Provider Unavailabl e Source Comments [facility],non-owned Affiliates and Associated Physician Practices is amultiple site organization consisting of ambulatory clinics and hospital sitesin [place], [place] and [place]. This disclosure is being madepursuant to the Care Everywhere program and may not contain all information available regarding this patient. Last updated 18.[facility] Allergies Active Allergy Reactions Criticality Noted Date [...] Brother 1 Gary Heart Disease Brother 1 Gary CHF Diabetes Brother 2 Zachary Heart Disease Brother 2 Zachary ME and stent Diabetes Father Heart Disease Father [...]
--- OUTSIDE RECORDS SUMMARY | 2025-03-05 11:39 | XMS_ITS | Clinical Summary ---
Author Organization [facility] Address [address] [place] [address] Phone Care Team Providers Care Valve Grinder Name Role Phone Loren Clements Primary Care Provider [phone] Allergies Active Allergy Reactions Criticality Noted Date [...] STL ABSTRACTION Provider, Abstract 12/25/2024 1:30 PM DIRECTOR CORPORATE COMPLIANCE Office Visit [facility] [address] [place] [address] Annika Cazares MD History of right breast cancer (Primary Dx); S/P partial mastectomy, right; Heterogeneously dense tissue of both breasts on mammography 12/25/2024 10:54 AM DIRECTOR CORPORATE COMPLIANCE - 12/25/2024 11:59 PM DIRECTOR CORPORATE COMPLIANCE Hospital Encounter [facility] [address] [address] [place] [address] Annika Cazares MD Discharge Disposition: Home or [...] Comments Blood Pressure 116/78 12/25/2024 1:19 PM DIRECTOR CORPORATE COMPLIANCE Pulse 55 12/25/2024 1:19 PM DIRECTOR CORPORATE COMPLIANCE Temperature 36.9 C (98.4 F) 12/19/2019 8:24 AM DIRECTOR CORPORATE COMPLIANCE Respiratory Rate 16 11/19/2019 12:32 PM DIRECTOR CORPORATE COMPLIANCE Oxygen Saturation 94% 12/25/2024 1:19 PM DIRECTOR CORPORATE COMPLIANCE Inhaled Oxygen Concentration - - Weight 66.7 kg (147 lb) 12/25/2024 1:19 PM DIRECTOR CORPORATE COMPLIANCE Height 157.5 cm (5' 2 ) 12/25/2024 1:19 PM DIRECTOR CORPORATE COMPLIANCE Body Mass Index 26.89 12/25/2024 1:19 PM DIRECTOR CORPORATE COMPLIANCE Plan of Treatment Health Maintenance Due Date [...] years Discontinued Medical Devices Implanted Type Area Kitchen Food Server Device Identifier Shelf Expiration Date Model / Serial / Lot Hemostatic Surgicel 2x14in 1952 - [id number] Implanted:Qty : 1 on 11/19/2019 by Annika Cazares MD at [facility] Hemostatic Right: Breast [employer] [id number] 03/27/20241950 / / [id number] Procedures Procedure Name Priority Date/Time Associated Diagnosis Comments MAMMO 3D BHAVIK DIAGNOSTIC BILAT W OR WO CAD Routine 12/25/2024 12:05 PM DIRECTOR CORPORATE COMPLIANCE History of right breast cancer from Last 3 Months Results * MAMMO DIAG BILAT 3D BHAVIK W OR WO CAD (12/25/2024 12:05 PM DIRECTOR CORPORATE COMPLIANCE) Anatomical Region Laterality Modality Breast Bilateral Mammography 12/25/2024 12:0 5 PM DIRECTOR CORPORATE COMPLIANCE Impressions 12/25/2024 12:13 PM DIRECTOR CORPORATE COMPLIANCE IMPRESSION: No mammographic evidence of malignancy in the bilateral breasts. Routine mammography is recommended in 1 year. OVERALL FINAL ASSESSMENT: BI-RADS CATEGORY 2 - Benign findings DICTATION LOCATION: [facility] 12/25/2024 12:13 PM DIRECTOR CORPORATE COMPLIANCE EXAMINATION: BILATERAL DIAGNOSTIC DIGITAL MAMMOGRAPHY WITH TOMOSYNTHESIS [...] Months Insurance MEDICARE PART A AND B [facility] [id number] Care Teams Valve Grinder Relationship Specialty Start Date End Date Loren Clements PA PCP - General Physician Public Health Clinical Nurse Specialist 10/18/19
== END 2025-03-05 10:25 | disposition home or self-care (01) ==
PROVIDERS: PCP Family Medicine
DX: M79.641 Pain in right hand (principal)
CPT/HCPCS: 95886; 95911

== ENCOUNTER 2025-10-08 09:30 | Outpatient (CLI) | payer MEDICARE, SELFPAY ==
--- NOTE | ~2025-10-08 | XR_ITS ---
EXAMINATION: XR hand BI arthritis min 3V, 10/08/2025 9:40 SENIOR MECHANICAL TECHNICIAN HISTORY: M18.9 - Osteoarthritis of first carpometacarpal joint, un... COMPARISON: No comparisons available. Findings: No acute fracture or malalignment. Severe degenerative changes of the first metacarpal carpal joint and the distal scaphoid articulations. Soft tissues unremarkable. Impression: No acute fracture or malalignment. Reviewed, dictated and finalized at location P. OR MECHANICAL TECHNICIAN Impression: No acute fracture or malalignment.
--- OUTSIDE RECORDS SUMMARY | 2025-10-08 09:53 | XMS_ITS | Clinical Summary ---
Author Organization [facility] Address [address] [place] [address] Phone Care Team Providers Care Chauf[employer]ur [employer] Limousine Name Role Phone Loren Clements Primary Care Provider [phone] Allergies Active Allergy Reactions Criticality Noted Date [...] Encounters Date Type Department Care Team Description 09/17/2025 External Device Data STL ABSTRACTION Provider, Abstract 07/30/2025 External Device Data STL ABSTRACTION Provider, Abstract 07/17/2025 External Device Data STL ABSTRACTION Provider, Abstract [...] Comments Blood Pressure 116/78 12/25/2024 1:19 PM PRIVATE PILOT Pulse 55 12/25/2024 1:19 PM PRIVATE PILOT Temperature 36.9 C (98.4 F) 12/19/2019 8:24 AM PRIVATE PILOT Respiratory Rate 16 11/19/2019 12:32 PM PRIVATE PILOT Oxygen Saturation 94% 12/25/2024 1:19 PM PRIVATE PILOT Inhaled Oxygen Concentration - - Weight 66.7 kg (147 lb) 12/25/2024 1:19 PM PRIVATE PILOT Height 157.5 cm (5' 2) 12/25/2024 1:19 PM PRIVATE PILOT Body Mass Index 26.89 12/25/2024 1:19 PM PRIVATE PILOT Plan of Treatment Health Maintenance Due Date Last Done Comments DTAP/TDAP/TD VACCINES (1 - Tdap) 1967 OSTEOPOROSIS SCREENING 2013 ZOSTER VACCINE (2 of 3) 09/13/2016 07/19/2016 RSV VACCINE (60+ or ) (1 - 1-dose 75+ series) 2023 INFLUENZA VACCINE (#1) 2025 09/12/2019, 2017 PNEUMOCOCCAL VACCINE 50+ YEARS Completed 12/27/2015 , 01/30/2014 COLORECTAL SCREENING Discontinued 04/28/2021 Colorectal Cancer Screening Discontinued FIT-DNA Q 3 years Discontinued FIT/FOBT Q 1 year Discontinued Flex Sig/CT Colonography Q 5 years Discontinued Medical Devices Implanted Type Area Payment Specialist Device Identifier Shelf Expiration Date Model / Serial / Lot Hemostatic Surgicel 2x14in 1952 - [id number] Implanted:Qty : 1 on 11/19/2019 by Annika Cazares MD at [facility] Right: Breast [employer] [id number] 03/27/[birth year]241952 / / [id number] Insurance MEDICARE PART A AND B [facility] [id number] Care Teams [employer] Relationship Specialty Start Date End Date Loren Clements PA PCP - General Physician Automation And Controls Manager 10/18/19
--- OUTSIDE RECORDS SUMMARY | 2025-10-08 09:53 | XMS_ITS | Encounter Summary ---
Author Organization [facility] Address [address] [place] [address] Care Team Providers Care Gmat Instructor Name Role Phone Loren Clements Primary Care Provider [phone] Encounter Details Date Type Department Care Team (Late st Contact Info) Description 12/11/2019 Chart Note [facility] Rad[facility] Therapy [address] [place] [address] [place] [address] [place] [address] Social History Tobacco Use Types [...] on filedocumented in this encounter Care Teams Gmat Instructor Relationship Specialty Start Date End Date Loren Clements PA PCP - General Physician Chopper Operator 10/18/19 documented as of this encounter
--- OUTSIDE RECORDS SUMMARY | 2025-10-08 09:53 | XMS_ITS | Clinical Summary ---
Author Organization [facility] Address [address] [place] [address] Care Team Providers Care Director Of Student Affairs Name Role Phone Unavailable Primary Care Provider Unavailabl e Source Comments [facility],non-owned Affiliates and Associated Physician Practices is amultiple site organization consisting of ambulatory clinics and hospital sitesin [place], [place], [place] and [place]. This disclosure is being madepursuant to the Care Everywhere program and may not contain all information available regarding this patient. Last updated 18.[facility] Allergies Active Allergy Reactions Criticality Noted Date Comments Ciprofloxacin Medium 07/19/2016 Abd. pain Diflucan Unknown 03/20/2013 Nitrofurantoin Unknown 03/20/2013 Sulfa Drugs Unknown 03/20/2013 Medications * Be aware that medications may not be up to date on this document. Alwaysverify current medications with the patient. aspirin 81 MG tablet Take 81 mg by mouth once daily Reported on 12/28/2016 Active Multiple Vitamin (MULTIVITAMINS PO) Take by mouth once daily. Active fish oil/omega-3 fatty acids (OMEGA 3) 1000 MG capsule Take 1,000 mg by mouth once daily. Active omeprazole (PRILOSEC) 20 MG capsule Take 1 Cap by mouth 2 times daily,before breakfast and supper 60 Cap 3 6 Active Additional Information Patient taking differently:20 mg OralDAILY, Reported on 04/16/2016 Probiotic Product (PROBIOTIC & ACIDOPHILUS EX ST) CAPS Take 1 Tab by mouth 2 times daily Active amLODIPine (NORVASC) 5 MG tablet Take 1 Tab by mouth once daily 90 Tab 3 7 Active benazepril (LOTENSIN) 20 MG tablet Take 1 Tab by mouth once daily 90 Tab 3 7 Active metoprolol succinate XL 24hr (TOPROL XL) 50 MG tablet Take 1 Tab by mouth once daily 90 Tab 3 7 Active Cholecalciferol (VITAMIN D3) 1000 UNITS Take 1,000 Units by mouth once daily Active Cholestyramine Use once daily 1/2 scoop per day Active metroNIDAZOLE (METROGEL) 0.75 % gel Apply to affected area once daily 3 Tube 3 7 Active Active Problems Problem Noted Date Diagnosed Date Electrolyte abnormality 05/10/2016 Personal history of surgery to heart and great vessels, presenting hazards to health 05/10/2016 Abnormal EEG 04/18/2016 Hypomagnesemia 04/18/2016 Hypokalemia 04/18/2016 Hypocalcemia 04/18/2016 Syncope 04/16/2016 Diastolic dysfunction 01/21/2016 Nonspecific abnormal electrocardiogram (ECG) (EK G) 01/05/2016 Hypercalcemia 08/07/2014 Esophageal reflux 06/07/2013 Essential hypertension, benign 06/07/2013 Hyperlipidemia 06/07/2013 Immunizations Immunization Administration Dates Next Due INFLUENZA VACCINE 09/06/2016,09/01/2015 [...] = 0.6 oz pur e alcohol) occasional Comments No Sex and Gender Information Value Date Recorded Sex Assigned at Not on file Legal Sex Female 2:49 PM CLINICAL SERVICES MANAGER Gender Identity Not on file Sexual Orientation [...] 2:11 PM CDT Height 157.5 cm (5' 2) 08/19/2017 2:11 PM CDT Body Mass Index 25.79 08/19/2017 2:11 PM CDT Plan of Treatment Health Maintenance Due Date Last Done Comments BONE DENSITY TESTING 1950 HEPATITIS C SCREENING 01/10/1966 DTAP/TDAP/TD VACCINES (1 - Tdap) 1967 ZOSTER VACCINE (2 of 3) 09/13/2016 07/19/2016 Respiratory Syncytial Virus (RSV) Vaccine Pt: or over 60 yrs (1 - 1-dose 75+ series) 2023 DEPRESSION SCREENING 11/28/2024 COVID-19 VACCINE ( - 2023-2 5 season) 2025 INFLUENZA VACCINE (#1) 2025 6, 09/01/2015 PNEUMOCOCCAL VACCINE 50+ Completed 016, 01/30/2014 [...] on patient's age to complete this topic Insurance MEDICARE [facility] MEDICARE Advance Directives * Full Code (Latest Code Status on File) Date Activated Date Inactivated Comments 04/16/2016 7:50 AM 04/18/2016 1:01 PM * Full Code Date Activated Date Inactivated Comments 03/23/2016 6:33 PM 04/02/2016 12:28 PM
== END 2025-10-08 09:31 | disposition home or self-care (01) ==
PROVIDERS: PCP Family Medicine; Visit Provider Plastic Surgery
DX: M18.9 Osteoarthritis of first carpometacarpal joint, unspecified (principal)
CPT/HCPCS: 73130